=== PATIENT | male | born 1990 | race Two or more races ===

== ENCOUNTER 2017-02-07 08:38 | Inpatient (IN) | payer OTHER ==
[2017-02-07 09:40] VITALS: BMI 23.2
[2017-02-07] MEDS: chlordiazePOXIDE HCL 25 MG CAPSULE PO SCH ×3 (11:34→22:13)
--- NOTE | 2017-02-07 12:07 | HP ---
CIWA Score - CIWA Score Nausea/Vomitin-No Nausea/No Vomiting Muscle Tremors: 4-Moderate,w/Arms Extend Anxiety: 3 Agitation: 4-Moderately Restless Paroxysmal Sweats: 3 Orientation: 0-Oriented Tacttile Disturbances: 0-None Auditory Disturbances: 0-None Visual Disturbances: 0-None Headache: 0-None Present CIWA-Ar Total Score: 14 Admission ROS BHS - HPI Chief Complaint: I am here for detox and try to stay clean Allergies/Adverse Reactions: Allergies Allergy/AdvReac Type Severity Reaction Status Date / Time No Known Allergies Allergy Verified 02/07/17 09:59 History of Present Illness: Pt is 26yr old male with a history of alcohol dependence seeking detox for treatment. Exam Limitations: No Limitations - Ebola screening Have you traveled outside of the country in the last 21 days: No Have you had contact with anyone from an Ebola affected area: No Have you been sick,other than usual withdrawal symptoms: No Do you have a fever: No - Review of Systems Constitutional: Chills, Diaphoresis, Night Sweats, Changes in sleep EENT: reports: No Symptoms Reported Respiratory: reports: No Symptoms reported Cardiac: reports: Syncope GI: reports: Nausea, Poor Fluid Intake : reports: No Symptoms Reported, Other (genital warts) Musculoskeletal: reports: Muscle Pain Integumentary: reports: Flushing, Sweating Neuro: reports: Tingling, Tremors Endocrine: reports: Excessive Sweating, Flushing, Intolerance to Cold, Intolerance to Heat Hematology: reports: No Symptoms Reported Psychiatric: reports: Judgement Intact, Mood/Affect Appropiate, Orientated x3, Agitated, Anxious Other Systems: Reviewed and Negative Patient History - Patient Medical History Hx Anemia: No Hx Asthma: No Hx Chronic Obstructive Pulmonary Disease (COPD): No Hx Cancer: No Hx Cardiac Disorders: No Hx Congestive Heart Failure: No Hx Hypertension: No Hx Hypercholesterolemia: No Hx Pacemaker: No HX Cerebrovascular Accident: No Hx Seizures: No Hx Dementia: No Hx Diabetes: No Hx Gastrointestinal Disorders: No Hx Liver Disease: No Hx Genitourinary Disorders: No Hx Sexually Transmitted Disorders: No Hx Renal Disease (ESRD): No Hx Thyroid Disease: No Hx Human Immunodeficiency Virus (HIV): No Hx Hepatitis C: No Hx Depression: No Hx Suicide Attempt: No Hx Bipolar Disorder: No Hx Schizophrenia: No Other Medical History: insomnia - Patient Surgical History Past Surgical History: No Hx Neurologic Surgery: No Hx Cataract Extraction: No Hx Cardiac Surgery: No Hx Lung Surgery: No Hx Breast Surgery: No Hx Breast Biopsy: No Hx Abdominal Surgery: No Hx Appendectomy: Yes (at age 20) Hx Cholecystectomy: No Hx Genitourinary Surgery: No Hx Section: No Hx Orthopedic Surgery: No Anesthesia Reaction: No - PPD History Previous Implant?: Yes Documented Results: Negative w/o proof Implanted On Prior [facility] Admission?: No PPD to be Administered?: Yes - Reproductive History Patient is a Female of Child Bearing Age (11 -55 yrs old): Yes - Smoking Cessation Smoking history: Never smoked Have you smoked in the past 12 months: No Hx Chewing Tobacco Use: No Initiated information on smoking cessation: No - Substance & Tx. History Hx Alcohol Use: Yes Hx Substance Use: No Substance Use Type: Alcohol Hx Substance Use Treatment: No (this is his first detox faciltiy) - Substances Abused Alcohol-vodka/rum/beer Route: Oral Frequency: Daily Amount used: 3 pts./2 (40 oz.) Age of first use: 13 Date of Last Use: 02/06/17 Family Disease History - Family Disease History Family History: Denies Admission Physical Exam BHS - Vital Signs Vital Signs: Vital Signs - 24 hr 02/07/17 09:37 Temperature 96.5 F L Pulse Rate 70 Respiratory 20 Rate Blood Pressure 157/85 - Physical General Appearance: Yes: Appropriately Dressed, Moderate Distress, Irritable, Sweating, Anxious HEENTM: Yes: Hearing grossly Normal, Normal Voice Respiratory: Yes: Lungs Clear, Normal Breath Sounds, No Respiratory Distress Neck: Yes: No masses,lesions,Nodules Breast: Yes: Within Normal Limits Cardiology: Yes: Regular Rhythm, Regular Rate, S1, S2 Abdominal: Yes: Normal Bowel Sounds, Non Tender, Soft Genitourinary: Yes: Other (genital warts to penis shaft and right scrotum area) Back: Yes: Normal Inspection Musculoskeletal: Yes: Within Normal Limits, full range of Motion Extremities: Yes: Normal Capillary Refill, Normal Inspection, Tremors Neurological: Yes: Fully Oriented, Alert, Normal Response Integumentary: Yes: Normal Color Lymphatic: Yes: Within Normal Limits - Diagnostic (1) Alcohol dependence with uncomplicated withdrawal Current Visit: Yes Status: Chronic (2) Cannabis dependence Current Visit: Yes Status: Chronic (3) Genital warts Current Visit: Yes Status: Acute Cleared for Admission [facility] - Detox or Rehab [facility] Level of Care: Medically Managed Detox Regimen/Protocol: Librium [facility] Breath Alcohol Content Breath Alcohol Content: 0 Urine Drug Screen - Results Drug Screen Negative: No Urine Drug Screen Results: THC-Marijuana, BZO-Benzodiazepines, OXY-Oxycodone
[2017-02-07] MEDS ORDERED: MENTHOL/PHENOL 1 EACH UD MM PRN (12:20)
[2017-02-07] MEDS ORDERED: chlordiazePOXIDE HCL 25 MG CAPSULE PO PRN (12:20)
[2017-02-07] MEDS ORDERED: IBUPROFEN 400 MG TABLET (FP) PO PRN (12:20)
[2017-02-07] MEDS ORDERED: MAG HYDROX/AL HYDROX/SIMETH 30 ML UNIT-DOSE CUP PO PRN (12:20)
[2017-02-07] MEDS ORDERED: MAGNESIUM CITRATE 300 ML BOTTLE PO PRN (12:20)
[2017-02-07] MEDS ORDERED: ACETAMINOPHEN 325 MG TABLET (FP) PO PRN (12:20)
[2017-02-07] MEDS ORDERED: guaiFENesin/D-METHORPHAN HB 10 ML UNIT-DOSE CUPS PO PRN (12:20)
[2017-02-07] MEDS ORDERED: hydrOXYzine PAMOATE 50 MG CAPSULE (FP) PO PRN (12:20)
[2017-02-07] MEDS ORDERED: MAGNESIUM HYDROX 2400MG/30ML ORAL SUSPENSION 30 ML CUP PO PRN (12:20)
[2017-02-07] MEDS ORDERED: P-EPHED 60MG/TRIPROLIDI 2.5MG TABLET PO PRN (12:20)
[2017-02-07] MEDS ORDERED: LOPERAMIDE HCL 2 MG CAPSULE PO PRN (12:20)
[2017-02-07] MEDS ORDERED: SALICYLIC ACID 1 APPLIC BOTTLE TP ONE (12:23)
[2017-02-07] MEDS ORDERED: chlordiazePOXIDE HCL 25 MG CAPSULE PO ONE (12:42)
[2017-02-07 14:33] LABS: HIV 1 & 2 AB NEGATIVE; HIV 1 AGp24 NEGATIVE
[2017-02-07 17:22] LABS: MCH 31.3 pg (25.7-33.7); MCHC 33.2 g/dl (32.0-35.9); MEAN CELL VOLUME 94.1 fl (80-96); MEAN PLT VOLUME 9.9 fl (7.5-11.1); PLATELET COUNT 166 K/MM3 (134-434); RDW 14.3 % (11.9-15.9); WHITE BLOOD COUNT 4.6 K/mm3 (4.0-10.0)
[2017-02-07 17:39] LABS: ALBUMIN 3.8 g/dl (3.4-5.0); ALK PHOS 72 U/L (45-117); ANION GAP 8 (8-16); BILIRUBIN,TOTAL 0.7 mg/dL (0.2-1.0); CALCIUM 9.3 mg/dL (8.5-10.1); CO2 27 mmol/L (21-32); CREATININE 0.9 mg/dL (0.7-1.3); GLUCOSE,RANDOM 109 mg/dL (74-106); SGOT/AST 95 U/L (15-37); SGPT/ALT 49 U/L (12-78); TOT PROT 7.2 g/dl (6.4-8.2)
[2017-02-07 22:12] LABS: URINE APPEARANCE CLEAR; URINE BILIRUBIN NEGATIVE (NEGATIVE); URINE BLOOD 1+ (NEGATIVE); URINE COLOR YELLOW; URINE GLUCOSE (UA) NEGATIVE (NEGATIVE); URINE KETONE NEGATIVE (NEGATIVE); URINE LEUK ESTERASE NEGATIVE (NEGATIVE); URINE NITRITE NEGATIVE (NEGATIVE); URINE PROTEIN NEGATIVE (NEGATIVE); URINE UROBILINOGEN NEGATIVE mg/dL (0.2-1.0)
[2017-02-07] MEDS: THIAMINE HCL 100 MG TABLET (FP) PO SCH (22:13)
[2017-02-07] MEDS: diphenhydrAMINE HCL 50 MG CAPSULE PO PRN (22:14)
[2017-02-07 22:28] LABS: URINE MUCUS RARE; URINE RBC <1 /hpf (0-3); URINE WBC 3 /hpf (3-5)
[2017-02-08] MEDS: chlordiazePOXIDE HCL 25 MG CAPSULE PO SCH ×4 (05:36→22:38)
[2017-02-08] MEDS: PRENATAL VITAMINS W/ FOLIC ACID TABLET (FP) PO SCH (10:31)
--- NOTE | 2017-02-08 10:47 | EKG ---
Test Reason : Blood Pressure : / mmHG Vent. Rate : 071 BPM Atrial Rate : 071 BPM P-R Int : 152 ms QRS Dur : 092 ms QT Int : 376 ms P-R-T Axes : 063 042 024 degrees QTc Int : 408 ms NORMAL SINUS RHYTHM MINIMAL VOLTAGE CRITERIA FOR LVH, MAY BE NORMAL VARIANT BORDERLINE ECG NO PREVIOUS ECGS AVAILABLE Confirmed by YVONNE EISENBERG, KALI ([id number]) on 02/08/2017 10:46:27 AM Referred By: Artem Valencia Confirmed By:KALI RUSSELL MD
[2017-02-08] MEDS ORDERED: SALICYLIC ACID 1 APPLIC BOTTLE TP ONE (11:00)
[2017-02-08] MEDS ORDERED: FLU VACCINE QUAD 60 MCG/0.5 ML (MDV 17-18) IM ONE (12:00)
--- NOTE | 2017-02-08 12:15 | PN ---
[facility] CIWA - CIWA Score Nausea/Vomitin-No Nausea/No Vomiting Muscle Tremors: 4-Moderate,w/Arms Extend Anxiety: 4-Mod. Anxious/Guarded Agitation: 2 Paroxysmal Sweats: 1-Minimal Palms Moist Orientation: 0-Oriented Tacttile Disturbances: 1-Very Mild Itch/Numbness Auditory Disturbances: 2-Mild Harshness/Frighten Visual Disturbances: 3-Moderate Sensitivity Headache: 0-None Present CIWA-Ar Total Score: 17 S Progress Note (SOAP) Subjective: Anxious, Tremors, Sweating. Objective: PT. A & O X 3, OBSERVED AMBULATING ON UNIT. NO ACUTE DISTRESS. PT. DENEIS CHEST PAIN. 02/08/17 12:11 Vital Signs Temperature 98.1 F 02/08/17 09:31 Pulse Rate 99 H 02/08/17 09:31 Respiratory Rate 20 02/08/17 09:31 Blood Pressure 148/77 02/08/17 09:31 O2 Sat by Pulse Oximetry (%) Laboratory Tests 02/07/17 02/07/17 02/07/17 11:00 13:00 13:00 WBC 4.6 RBC 4.48 Hgb 14.0 Hct 42.2 MCV 94.1 MCH 31.3 MCHC 33.2 RDW 14.3 Plt Count 166 MPV 9.9 Sodium 137 Potassium 3.6 Chloride 102 Carbon Dioxide 27 Anion Gap 8 BUN 11 Creatinine 0.9 Creat Clearance w eGFR > 60 Random Glucose 109 H Calcium 9.3 Total Bilirubin 0.7 AST 95 H ALT 49 Alkaline Phosphatase 72 Total Protein 7.2 Albumin 3.8 Urine Color Urine Appearance Urine pH Ur Specific [place] Urine Protein Urine Glucose (UA) Urine Ketones Urine Blood Urine Nitrite Urine Bilirubin Urine Urobilinogen Urine RBC Urine WBC Urine Mucus HIV 1&2 Antibody Screen Negative HIV P24 Antigen Negative 02/07/17 21:46 WBC RBC Hgb Hct MCV MCH MCHC RDW Plt Count MPV Sodium Potassium Chloride Carbon Dioxide Anion Gap BUN Creatinine Creat Clearance w eGFR Random Glucose Calcium Total Bilirubin AST ALT Alkaline Phosphatase Total Protein Albumin Urine Color Yellow Urine Appearance Clear Urine pH 6.0 Ur Specific [place] 1.015 Urine Protein Negative Urine Glucose (UA) Negative Urine Ketones Negative Urine Blood 1+ H Urine Nitrite Negative Urine Bilirubin Negative Urine Urobilinogen Negative Urine RBC <1 Urine WBC 3 Urine Mucus Rare HIV 1&2 Antibody Screen HIV P24 Antigen LABS NOTED. RPR RESULT PENDING. 02/08/17 12:14 Assessment: 02/08/17 12:11 WITHDRAWAL SYMPTOMS. Plan: CONTINUE DETOX. REPEAT AST (02/09/2017) FOR ELEVATED ADMISSION VALUE. INCREASE DAILY PO FLUID INTAKE.
[2017-02-08] MEDS: diphenhydrAMINE HCL 50 MG CAPSULE PO PRN (22:38)
[2017-02-08] MEDS: THIAMINE HCL 100 MG TABLET (FP) PO SCH (22:38)
[2017-02-09] MEDS: chlordiazePOXIDE HCL 25 MG CAPSULE PO SCH (05:04)
[2017-02-09] MEDS ORDERED: SALICYLIC ACID 1 APPLIC BOTTLE TP SCH (10:15)
[2017-02-09] MEDS: PRENATAL VITAMINS W/ FOLIC ACID TABLET (FP) PO SCH (10:24)
[2017-02-09] MEDS: chlordiazePOXIDE 5 MG CAPSULE PO SCH ×3 (10:24→22:33)
--- NOTE | 2017-02-09 12:28 | PN ---
[facility] CIWA - CIWA Score Nausea/Vomitin-No Nausea/No Vomiting Muscle Tremors: 3 Anxiety: 5 Agitation: 4-Moderately Restless Paroxysmal Sweats: 1-Minimal Palms Moist Orientation: 0-Oriented Tacttile Disturbances: 3-Moderate Itch/Numb/Burn Auditory Disturbances: 0-None Visual Disturbances: 0-None Headache: 0-None Present CIWA-Ar Total Score: 16 BHS Progress Note (SOAP) Subjective: ANXIETY,SWEATS,SLIGHT TREMORS. PT ON TREATMENT FOR GENITAL/ANAL WARTS. Objective: 02/09/17 12:24 Vital Signs Temperature 99.6 F 02/09/17 09:53 Pulse Rate 100 H 02/09/17 09:53 Respiratory Rate 18 02/09/17 09:53 Blood Pressure 144/80 02/09/17 09:53 O2 Sat by Pulse Oximetry (%) Laboratory Last Values WBC 4.6 K/mm3 (4.0-10.0) 02/07/17 13:00 RBC 4.48 M/mm3 (4.00-5.60) 02/07/17 13:00 Hgb 14.0 GM/dL (11.7-16.9) 02/07/17 13:00 Hct 42.2 % (35.4-49) 02/07/17 13:00 MCV 94.1 fl (80-96) 02/07/17 13:00 MCH 31.3 pg (25.7-33.7) 02/07/17 13:00 MCHC 33.2 g/dl (32.0-35.9) 02/07/17 13:00 RDW 14.3 % (11.9-15.9) 02/07/17 13:00 Plt Count 166 K/MM3 (134-434) 02/07/17 13:00 MPV 9.9 fl (7.5-11.1) 02/07/17 13:00 Sodium 137 mmol/L (136-145) 02/07/17 13:00 Potassium 3.6 mmol/L (3.5-5.1) 02/07/17 13:00 Chloride 102 mmol/L (98-107) 02/07/17 13:00 Carbon Dioxide 27 mmol/L (21-32) 02/07/17 13:00 Anion Gap 8 (8-16) 02/07/17 13:00 BUN 11 mg/dL (7-18) 02/07/17 13:00 Creatinine 0.9 mg/dL (0.7-1.3) 02/07/17 13:00 Creat Clearance w eGFR > 60 (>60) 02/07/17 13:00 Random Glucose 109 mg/dL (74-106) H 02/07/17 13:00 Calcium 9.3 mg/dL (8.5-10.1) 02/07/17 13:00 Total Bilirubin 0.7 mg/dL (0.2-1.0) 02/07/17 13:00 AST 78 U/L (15-37) H 02/09/17 07:00 ALT 49 U/L (12-78) 02/07/17 13:00 Alkaline Phosphatase 72 U/L (45-117) 02/07/17 13:00 Total Protein 7.2 g/dl (6.4-8.2) 02/07/17 13:00 Albumin 3.8 g/dl (3.4-5.0) 02/07/17 13:00 Urine Color Yellow 02/07/17 21:46 Urine Appearance Clear 02/07/17 21:46 Urine pH 6.0 (5.0-8.0) 02/07/17 21:46 Ur Specific [employer] 1.015 (1.005-1.025) 02/07/17 21:46 Urine Protein Negative (NEGATIVE) 02/07/17 21:46 Urine Glucose (UA) Negative (NEGATIVE) 02/07/17 21:46 Urine Ketones Negative (NEGATIVE) 02/07/17 21:46 Urine Blood 1+ (NEGATIVE) H 02/07/17 21:46 Urine Nitrite Negative (NEGATIVE) 02/07/17 21:46 Urine Bilirubin Negative (NEGATIVE) 02/07/17 21:46 Urine Urobilinogen Negative mg/dL (0.2-1.0) 02/07/17 21:46 Urine RBC <1 /hpf (0-3) 02/07/17 21:46 Urine WBC 3 /hpf (3-5) 02/07/17 21:46 Urine Mucus Rare 02/07/17 21:46 RPR Titer Nonreactive (NONREACTIVE) 02/07/17 13:00 HIV 1&2 Antibody Screen Negative 02/07/17 11:00 HIV P24 Antigen Negative 02/07/17 11:00 ANAL/GENITAL GROWTH NOTED. Assessment: 02/09/17 12:25 WITHDRAWAL SX Plan: CONTINUE DETOX PT WAS INSTRUCTED TO FOLLOW UP WITH PMD/I.D SPECIALIST AT [facility] FOR FURTHER MANAGEMENT OF CONDITION AFTER DETOX.
[2017-02-09] MEDS: SALICYLIC ACID 1 APPLIC BOTTLE TP SCH (13:45)
--- NOTE | 2017-02-09 17:49 | PN ---
BHS Progress Note Note: Clonidine, 0.1 mg PO X 1 ordered for multiple elevated BP's. Patient denies any history of Hypertension. 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
[2017-02-09] MEDS ORDERED: cloNIDine HCL 0.1 MG TABLET PO ONE (18:00)
[2017-02-09] MEDS: THIAMINE HCL 100 MG TABLET (FP) PO SCH (22:33)
[2017-02-09] MEDS: diphenhydrAMINE HCL 50 MG CAPSULE PO PRN (22:33)
[2017-02-10] MEDS: chlordiazePOXIDE 5 MG CAPSULE PO SCH (05:18)
[2017-02-10] MEDS: PRENATAL VITAMINS W/ FOLIC ACID TABLET (FP) PO SCH (10:45)
[2017-02-10] MEDS: SALICYLIC ACID 1 APPLIC BOTTLE TP SCH (10:46)
[2017-02-10] MEDS: chlordiazePOXIDE HCL 10 MG CAPSULE PO SCH ×3 (10:46→22:48)
--- NOTE | 2017-02-10 16:41 | PN ---
BHS Progress Note (SOAP) Subjective: Sweating, Body Aches. Objective: PT. A & O X 2 (DISORIENTED ABOUT DAY/ DATE). PT. OBSERVED AMBULATING ON UNIT. NO ACUTE DISTRESS. 02/10/17 16:39 Vital Signs Temperature 97.0 F L 02/10/17 15:22 Pulse Rate 92 H 02/10/17 15:22 Respiratory Rate 20 02/10/17 15:22 Blood Pressure 147/84 02/10/17 15:22 O2 Sat by Pulse Oximetry (%) Laboratory Tests 02/07/17 02/07/17 02/07/17 11:00 13:00 13:00 WBC 4.6 RBC 4.48 Hgb 14.0 Hct 42.2 MCV 94.1 MCH 31.3 MCHC 33.2 RDW 14.3 Plt Count 166 MPV 9.9 Sodium 137 Potassium 3.6 Chloride 102 Carbon Dioxide 27 Anion Gap 8 BUN 11 Creatinine 0.9 Creat Clearance w eGFR > 60 Random Glucose 109 H Calcium 9.3 Total Bilirubin 0.7 AST 95 H ALT 49 Alkaline Phosphatase 72 Total Protein 7.2 Albumin 3.8 Urine Color Urine Appearance Urine pH Ur Specific [place] Urine Protein Urine Glucose (UA) Urine Ketones Urine Blood Urine Nitrite Urine Bilirubin Urine Urobilinogen Urine RBC Urine WBC Urine Mucus RPR Titer HIV 1&2 Antibody Screen Negative HIV P24 Antigen Negative 02/07/17 02/07/17 02/09/17 13:00 21:46 07:00 WBC RBC Hgb Hct MCV MCH MCHC RDW Plt Count MPV Sodium Potassium Chloride Carbon Dioxide Anion Gap BUN Creatinine Creat Clearance w eGFR Random Glucose Calcium Total Bilirubin AST 78 H ALT Alkaline Phosphatase Total Protein Albumin Urine Color Yellow Urine Appearance Clear Urine pH 6.0 Ur Specific [place] 1.015 Urine Protein Negative Urine Glucose (UA) Negative Urine Ketones Negative Urine Blood 1+ H Urine Nitrite Negative Urine Bilirubin Negative Urine Urobilinogen Negative Urine RBC <1 Urine WBC 3 Urine Mucus Rare RPR Titer Nonreactive HIV 1&2 Antibody Screen HIV P24 Antigen LABS NOTED. 02/10/17 16:40 Assessment: 02/10/17 16:40 WITHDRAWAL SYMPTOMS. Plan: CONTINUE DETOX.
[2017-02-10] MEDS: diphenhydrAMINE HCL 50 MG CAPSULE PO PRN (22:48)
[2017-02-10] MEDS: THIAMINE HCL 100 MG TABLET (FP) PO SCH (22:48)
[2017-02-11] MEDS: chlordiazePOXIDE HCL 10 MG CAPSULE PO SCH (05:47)
[2017-02-11 07:03] VITALS: BP 124/80; PULSE 81; TEMP 96.8
--- NOTE | 2017-02-11 12:38 | DS ---
[facility] Detox Discharge Summary Admission Date: 02/07/17 Discharge Date: 02/11/17 - History Present History: Alcohol Dependence, Cannabis Dependence Pertinent Past History: Denies - Physical Exam Results Vital Signs: Vital Signs Temperature 96.8 F L 02/11/17 07:03 Pulse Rate 81 02/11/17 07:03 Respiratory Rate 18 02/11/17 07:03 Blood Pressure 124/80 02/11/17 07:03 O2 Sat by Pulse Oximetry (%) Pertinent Admission Physical Exam Findings: Withdrawal symptoms Laboratory Tests 02/07/17 02/07/17 02/07/17 11:00 13:00 13:00 WBC 4.6 RBC 4.48 Hgb 14.0 Hct 42.2 MCV 94.1 MCH 31.3 MCHC 33.2 RDW 14.3 Plt Count 166 MPV 9.9 Sodium 137 Potassium 3.6 Chloride 102 Carbon Dioxide 27 Anion Gap 8 BUN 11 Creatinine 0.9 Creat Clearance w eGFR > 60 Random Glucose 109 H Calcium 9.3 Total Bilirubin 0.7 AST 95 H ALT 49 Alkaline Phosphatase 72 Total Protein 7.2 Albumin 3.8 Urine Color Urine Appearance Urine pH Ur Specific [place] Urine Protein Urine Glucose (UA) Urine Ketones Urine Blood Urine Nitrite Urine Bilirubin Urine Urobilinogen Urine RBC Urine WBC Urine Mucus RPR Titer HIV 1&2 Antibody Screen Negative HIV P24 Antigen Negative 02/07/17 02/07/17 02/09/17 13:00 21:46 07:00 WBC RBC Hgb Hct MCV MCH MCHC RDW Plt Count MPV Sodium Potassium Chloride Carbon Dioxide Anion Gap BUN Creatinine Creat Clearance w eGFR Random Glucose Calcium Total Bilirubin AST 78 H ALT Alkaline Phosphatase Total Protein Albumin Urine Color Yellow Urine Appearance Clear Urine pH 6.0 Ur Specific [place] 1.015 Urine Protein Negative Urine Glucose (UA) Negative Urine Ketones Negative Urine Blood 1+ H Urine Nitrite Negative Urine Bilirubin Negative Urine Urobilinogen Negative Urine RBC <1 Urine WBC 3 Urine Mucus Rare RPR Titer Nonreactive HIV 1&2 Antibody Screen HIV P24 Antigen Labs noted: microscopic hematuria; encouraged to drink lots of water, f/u with PCP in 1-2 weeks - Treatment Hospital Course: Detox Protocol Followed, Detoxed Safely, Responded well, Discharged Condition Good - Medication Discharge Medications: Ambulatory Orders NK [No Known Home Medication] 02/07/17 - Diagnosis (1) Alcohol dependence with uncomplicated withdrawal Status: Acute (2) Cannabis dependence Status: Acute (3) Microscopic hematuria Status: Acute - AMA Did Patient Leave Against Medical Advice: No
== END 2017-02-11 09:36 | disposition home or self-care (01) | DRG 775 ==
LOC: YASAS 08:38 → Y3N 12:02
PROVIDERS: ADMIT Internal Medicine; ATTEND Internal Medicine
PROC: HZ2ZZZZ Detoxification Services for Substance Abuse Treatment (ICD-10-PCS; principal; 2017-02-07)
DX: F10.230 Alcohol dependence with withdrawal, uncomplicated (principal); F12.20 Cannabis dependence, uncomplicated; R31.29 Other microscopic hematuria; A63.0 Anogenital (venereal) warts
CPT/HCPCS: 36415; 80053; 81003; 81015; 84450; 85027; 86593; 87389; 90688; 93005; 93010; G0008

== ENCOUNTER 2017-10-13 08:54 | Inpatient (IN) | payer OTHER ==
[2017-10-13 10:03] VITALS: BMI 21.9
--- NOTE | 2017-10-13 11:53 | HP ---
CIWA Score - CIWA Score Nausea/Vomitin-Mild Nausea/No Vomiting Muscle Tremors: 4-Moderate,w/Arms Extend Anxiety: 4-Mod. Anxious/Guarded Agitation: 4-Moderately Restless Paroxysmal Sweats: 1-Minimal Palms Moist Orientation: 0-Oriented Tacttile Disturbances: 1-Very Mild Itch/Numbness Auditory Disturbances: 1-Very Mild Visual Disturbances: 1-Very Mild Sensitivity Headache: 1-Very Mild CIWA-Ar Total Score: 18 Admission ROS S - HPI Chief Complaint: I get seizures - they said if I stop drinking the seizures will stop, I don't like the medication Allergies/Adverse Reactions: Allergies Allergy/AdvReac Type Severity Reaction Status Date / Time No Known Allergies Allergy Verified 10/13/17 11:13 History of Present Illness: 26 yo gentleman here for detox from alcohol. Patient reports a seizure history as recently as last week but does not like side effects from anti-seizure meds so goes on and off them. Also has black outs. Noted benzo in urine tox - states he was in [facility] ED last night for tremors and they gave him medication. Exam Limitations: Clinical Condition - Ebola screening Have you traveled outside of the country in the last 21 days: No (N) Have you had contact with anyone from an Ebola affected area: No Have you been sick,other than usual withdrawal symptoms: No Do you have a fever: No - Review of Systems Constitutional: Loss of Appetite, Malaise, Changes in sleep EENT: reports: No Symptoms Reported Respiratory: reports: No Symptoms reported Cardiac: reports: No Symptoms Reported GI: reports: Poor Appetite, Poor Fluid Intake, Indigestion, Abdominal cramping : reports: Frequency, Other (penile wart) Musculoskeletal: reports: No Symptoms Reported Integumentary: reports: Dryness Neuro: reports: Seizure, Tremors Endocrine: reports: No Symptoms Reported Hematology: reports: No Symptoms Reported Psychiatric: reports: Judgement Intact, Mood/Affect Appropiate, Orientated x3, Anxious Other Systems: Reviewed and Negative Patient History - Patient Medical History Hx Anemia: No Hx Asthma: No Hx Chronic Obstructive Pulmonary Disease (COPD): No Hx Cancer: No Hx Cardiac Disorders: No Hx Congestive Heart Failure: No Hx Hypertension: No Hx Hypercholesterolemia: No Hx Pacemaker: No HX Cerebrovascular Accident: No Hx Seizures: Yes (one week ago, on meds) Hx Dementia: No Hx Diabetes: No Hx Gastrointestinal Disorders: No Hx Liver Disease: No Hx Genitourinary Disorders: Yes (penile wart) Hx Sexually Transmitted Disorders: No Hx Renal Disease (ESRD): No Hx Thyroid Disease: No Hx Human Immunodeficiency Virus (HIV): No Hx Hepatitis C: No Hx Depression: No Hx Suicide Attempt: No Hx Bipolar Disorder: No Hx Schizophrenia: No - Patient Surgical History Past Surgical History: Yes Hx Neurologic Surgery: No Hx Cataract Extraction: No Hx Cardiac Surgery: No Hx Lung Surgery: No Hx Breast Surgery: No Hx Breast Biopsy: No Hx Abdominal Surgery: No Hx Appendectomy: Yes (at age 20) Hx Cholecystectomy: No Hx Genitourinary Surgery: No Hx Section: No Hx Orthopedic Surgery: No Anesthesia Reaction: No - PPD History Previous Implant?: Yes Documented Results: Negative w/proof Date: 02/09/17 PPD to be Administered?: No - Reproductive History Patient is a Female of Child Bearing Age (11 -55 yrs old): No (male) - Smoking Cessation Smoking history: Never smoked Have you smoked in the past 12 months: No Hx Chewing Tobacco Use: No Initiated information on smoking cessation: No - Substance & Tx. History Hx Alcohol Use: Yes Hx Substance Use: Yes Substance Use Type: Alcohol Hx Substance Use Treatment: Yes (detox) - Substances Abused Alcohol Route: Oral Frequency: Daily Amount used: LIQUOR- 3 PINTS, 40 oz BEER- two Age of first use: 13 Date of Last Use: 10/12/17 cannabis Route: Smoking Frequency: 3-6 times per week Amount used: 2 blunts Age of first use: 15 Date of Last Use: 10/12/17 Family Disease History - Family Disease History Family Disease History: Other: Father (living, etoh), Mother (living, ), Brother (two - living - healthy), Sister (four - living - healthy), Son (two - healthy, ages 4 and 10), Daughter (one - healthy, age 6) Admission Physical Exam BHS - Vital Signs Vital Signs: Vital Signs - 24 hr 10/13/17 09:36 Temperature 98.9 F Pulse Rate 86 Respiratory 20 Rate Blood Pressure 133/80 - Physical General Appearance: Yes: Nourished, Appropriately Dressed, Moderate Distress, Tremorous, Anxious HEENTM: Yes: Hearing grossly Normal, Normal ENT Inspection, Normocephalic, Normal Voice, Pharynx Normal Respiratory: Yes: Normal Breath Sounds, No Respiratory Distress Neck: Yes: No masses,lesions,Nodules Breast: Yes: Breast Exam Deferred Cardiology: Yes: Regular Rhythm, Regular Rate Abdominal: Yes: Flat, Soft Genitourinary: Yes: Frequency, Pain (small genital wart) Back: Yes: Normal Inspection Musculoskeletal: Yes: full range of Motion, Gait Steady Extremities: Yes: Normal Capillary Refill, Normal Inspection, Normal Range of Motion, Non-Tender Neurological: Yes: Fully Oriented, Alert, Normal Mood/Affect, Normal Response Integumentary: Yes: Normal Color, Dry, Warm Lymphatic: Yes: Within Normal Limits - Diagnostic (1) Alcohol dependence with uncomplicated withdrawal Current Visit: Yes Status: Chronic (2) History of seizure Current Visit: Yes Status: Chronic (3) Cannabis dependence Current Visit: Yes Status: Chronic (4) Genital warts Current Visit: Yes Status: Chronic Cleared for Admission [facility] - Detox or Rehab [facility] Level of Care: Medically Managed Detox Regimen/Protocol: Librium [facility] Breath Alcohol Content Breath Alcohol Content: 0.008 Urine Drug Screen - Results Drug Screen Negative: No Urine Drug Screen Results: THC-Marijuana, BZO-Benzodiazepines
[2017-10-13] MEDS ORDERED: MAG HYDROX/AL HYDROX/SIMETH 30 ML UNIT-DOSE CUP PO PRN (12:21)
[2017-10-13] MEDS ORDERED: MAGNESIUM HYDROX 2400MG/30ML ORAL SUSPENSION 30 ML CUP PO PRN (12:21)
[2017-10-13] MEDS ORDERED: MAGNESIUM CITRATE 300 ML BOTTLE PO PRN (12:21)
[2017-10-13] MEDS ORDERED: LOPERAMIDE HCL 2 MG CAPSULE PO PRN (12:21)
[2017-10-13] MEDS ORDERED: ACETAMINOPHEN 325 MG TABLET (FP) PO PRN (12:21)
[2017-10-13] MEDS ORDERED: MENTHOL/PHENOL 1 EACH UD MM PRN (12:21)
[2017-10-13] MEDS ORDERED: IBUPROFEN 400 MG TABLET (FP) PO PRN (12:21)
[2017-10-13] MEDS ORDERED: chlordiazePOXIDE HCL 25 MG CAPSULE PO ONE (12:21)
[2017-10-13] MEDS ORDERED: chlordiazePOXIDE HCL 25 MG CAPSULE PO PRN (12:21)
[2017-10-13] MEDS ORDERED: hydrOXYzine PAMOATE 25 MG CAPSULE (FP) PO PRN (12:21)
[2017-10-13] MEDS ORDERED: P-EPHED 60MG/TRIPROLIDI 2.5MG TABLET PO PRN (12:21)
[2017-10-13] MEDS ORDERED: guaiFENesin/D-METHORPHAN HB 10 ML UNIT-DOSE CUPS PO PRN (12:21)
[2017-10-13] MEDS: chlordiazePOXIDE HCL 25 MG CAPSULE PO SCH ×2 (17:12→22:15)
[2017-10-13] MEDS: THIAMINE HCL 100 MG TABLET (FP) PO SCH (22:15)
[2017-10-13] MEDS: LACOSAMIDE 50 MG TABLET PO SCH (22:15)
[2017-10-14] MEDS: chlordiazePOXIDE HCL 25 MG CAPSULE PO SCH ×4 (05:15→22:14)
[2017-10-14] MEDS: LACOSAMIDE 50 MG TABLET PO SCH ×2 (10:07→22:15)
[2017-10-14] MEDS: PRENATAL VITAMINS W/ FOLIC ACID TABLET (FP) PO SCH (10:07)
[2017-10-14 11:01] LABS: URINE APPEARANCE CLEAR; URINE BILIRUBIN NEGATIVE (<2.0 mg/dL); URINE BLOOD NEGATIVE (NEGATIVE); URINE COLOR LTYELLOW; URINE GLUCOSE (UA) NEGATIVE (NEGATIVE); URINE KETONE NEGATIVE (NEGATIVE); URINE LEUK ESTERASE NEGATIVE (NEGATIVE); URINE NITRITE NEGATIVE (NEGATIVE); URINE PROTEIN NEGATIVE (NEGATIVE); URINE UROBILINOGEN NEGATIVE mg/dL (0.2-1.0)
[2017-10-14 11:03] LABS: HEMOGLOBIN 14.6 GM/dL (11.7-16.9); MCH 32.9 pg (25.7-33.7); MCHC 33.9 g/dl (32.0-35.9); MEAN PLT VOLUME 9.1 fl (7.5-11.1); PLATELET COUNT 180 K/MM3 (134-434); RBC 4.43 M/mm3 (4.00-5.60); RDW 14.7 % (11.9-15.9); WHITE BLOOD COUNT 4.5 K/mm3 (4.0-10.0)
[2017-10-14 11:08] LABS: CHLORIDE 103 mmol/L (98-107); POTASSIUM 4.2 mmol/L (3.5-5.1); SODIUM 140 mmol/L (136-145)
[2017-10-14 11:28] LABS: ALBUMIN 3.8 g/dl (3.4-5.0); ALK PHOS 57 U/L (45-117); ANION GAP 8 (8-16); BILIRUBIN,TOTAL 0.3 mg/dL (0.2-1.0); BLOOD UREA NITROGEN 9 mg/dL (7-18); CALCIUM 9.2 mg/dL (8.5-10.1); CO2 29 mmol/L (21-32); CREATININE 0.9 mg/dL (0.7-1.3); GLUCOSE,RANDOM 90 mg/dL (74-106); SGOT/AST 35 U/L (15-37); SGPT/ALT 35 U/L (12-78); TOT PROT 7.2 g/dl (6.4-8.2)
--- NOTE | 2017-10-14 13:34 | PN ---
[facility] CIWA - CIWA Score Nausea/Vomitin-Mild Nausea/No Vomiting Muscle Tremors: 4-Moderate,w/Arms Extend Anxiety: 3 Agitation: 3 Paroxysmal Sweats: 1-Minimal Palms Moist Orientation: 0-Oriented Tacttile Disturbances: 1-Very Mild Itch/Numbness Auditory Disturbances: 0-None Visual Disturbances: 0-None Headache: 1-Very Mild CIWA-Ar Total Score: 14 BHS Progress Note (SOAP) Subjective: sweat tremor restlessness hot chill cold trouble sleep at night Objective: 10/14/17 13:34 Vital Signs Temperature 97.7 F 10/14/17 09:18 Pulse Rate 67 10/14/17 09:18 Respiratory Rate 18 10/14/17 09:18 Blood Pressure 120/76 10/14/17 09:18 O2 Sat by Pulse Oximetry (%) Laboratory Last Values WBC 4.5 K/mm3 (4.0-10.0) 10/14/17 07:40 RBC 4.43 M/mm3 (4.00-5.60) 10/14/17 07:40 Hgb 14.6 GM/dL (11.7-16.9) 10/14/17 07:40 Hct 43.0 % (35.4-49) 10/14/17 07:40 MCV 97.0 fl (80-96) H 10/14/17 07:40 MCH 32.9 pg (25.7-33.7) 10/14/17 07:40 MCHC 33.9 g/dl (32.0-35.9) 10/14/17 07:40 RDW 14.7 % (11.9-15.9) 10/14/17 07:40 Plt Count 180 K/MM3 (134-434) 10/14/17 07:40 MPV 9.1 fl (7.5-11.1) 10/14/17 07:40 Sodium 140 mmol/L (136-145) 10/14/17 07:40 Potassium 4.2 mmol/L (3.5-5.1) 10/14/17 07:40 Chloride 103 mmol/L (98-107) 10/14/17 07:40 Carbon Dioxide 29 mmol/L (21-32) 10/14/17 07:40 Anion Gap 8 (8-16) 10/14/17 07:40 BUN 9 mg/dL (7-18) 10/14/17 07:40 Creatinine 0.9 mg/dL (0.7-1.3) 10/14/17 07:40 Creat Clearance w eGFR > 60 (>60) 10/14/17 07:40 Random Glucose 90 mg/dL (74-106) 10/14/17 07:40 Calcium 9.2 mg/dL (8.5-10.1) 10/14/17 07:40 Total Bilirubin 0.3 mg/dL (0.2-1.0) D 10/14/17 07:40 AST 35 U/L (15-37) D 10/14/17 07:40 ALT 35 U/L (12-78) D 10/14/17 07:40 Alkaline Phosphatase 57 U/L (45-117) D 10/14/17 07:40 Total Protein 7.2 g/dl (6.4-8.2) 10/14/17 07:40 Albumin 3.8 g/dl (3.4-5.0) 10/14/17 07:40 Urine Color [place] 10/14/17 08:15 Urine Appearance Clear 10/14/17 08:15 Urine pH 6.0 (5.0-8.0) 10/14/17 08:15 Ur Specific [place] 1.011 (1.001-1.035) 10/14/17 08:15 Urine Protein Negative (NEGATIVE) 10/14/17 08:15 Urine Glucose (UA) Negative (NEGATIVE) 10/14/17 08:15 Urine Ketones Negative (NEGATIVE) 10/14/17 08:15 Urine Blood Negative (NEGATIVE) 10/14/17 08:15 Urine Nitrite Negative (NEGATIVE) 10/14/17 08:15 Urine Bilirubin Negative (<2.0 mg/dL) 10/14/17 08:15 Urine Urobilinogen Negative mg/dL (0.2-1.0) 10/14/17 08:15 Ur Leukocyte Esterase Negative (NEGATIVE) 10/14/17 08:15 RPR Titer Nonreactive (NONREACTIVE) 10/14/17 07:40 lab noted Assessment: 10/14/17 13:34 withdrawal sx Plan: continue detox
[2017-10-14] MEDS: THIAMINE HCL 100 MG TABLET (FP) PO SCH (22:14)
--- NOTE | 2017-10-14 22:43 | EKG ---
Test Reason : Blood Pressure : / mmHG Vent. Rate : 074 BPM Atrial Rate : 074 BPM P-R Int : 144 ms QRS Dur : 090 ms QT Int : 374 ms P-R-T Axes : 065 043 015 degrees QTc Int : 415 ms NORMAL SINUS RHYTHM POSSIBLE LEFT ATRIAL ENLARGEMENT NONSPECIFIC T WAVE ABNORMALITY ABNORMAL ECG WHEN COMPARED WITH ECG OF 07-FEB-2017 13:32, NO SIGNIFICANT CHANGE WAS FOUND Confirmed by FLORI SANCHES MD ([id number]) on 10/14/2017 10:42:46 PM Referred By: Confirmed By:FLORI SANCHES MD
[2017-10-15] MEDS: chlordiazePOXIDE HCL 25 MG CAPSULE PO SCH ×2 (04:59→10:37)
[2017-10-15] MEDS: PRENATAL VITAMINS W/ FOLIC ACID TABLET (FP) PO SCH (09:15)
[2017-10-15] MEDS: LACOSAMIDE 50 MG TABLET PO SCH ×2 (09:15→22:38)
--- NOTE | 2017-10-15 10:59 | PN ---
S CIWA - CIWA Score Nausea/Vomitin-Mild Nausea/No Vomiting Muscle Tremors: 4-Moderate,w/Arms Extend Anxiety: 3 Agitation: 3 Paroxysmal Sweats: 1-Minimal Palms Moist Orientation: 0-Oriented Tacttile Disturbances: 0-None Auditory Disturbances: 0-None Visual Disturbances: 0-None Headache: 0-None Present CIWA-Ar Total Score: 12 [facility] Progress Note (SOAP) Subjective: sweat tremor trouble sleep at night anxiety restlessness Objective: 10/15/17 10:58 Vital Signs Temperature 97.9 F 10/15/17 10:00 Pulse Rate 82 10/15/17 10:00 Respiratory Rate 16 10/15/17 10:00 Blood Pressure 123/74 10/15/17 10:00 O2 Sat by Pulse Oximetry (%) Laboratory Last Values WBC 4.5 K/mm3 (4.0-10.0) 10/14/17 07:40 RBC 4.43 M/mm3 (4.00-5.60) 10/14/17 07:40 Hgb 14.6 GM/dL (11.7-16.9) 10/14/17 07:40 Hct 43.0 % (35.4-49) 10/14/17 07:40 MCV 97.0 fl (80-96) H 10/14/17 07:40 MCH 32.9 pg (25.7-33.7) 10/14/17 07:40 MCHC 33.9 g/dl (32.0-35.9) 10/14/17 07:40 RDW 14.7 % (11.9-15.9) 10/14/17 07:40 Plt Count 180 K/MM3 (134-434) 10/14/17 07:40 MPV 9.1 fl (7.5-11.1) 10/14/17 07:40 Sodium 140 mmol/L (136-145) 10/14/17 07:40 Potassium 4.2 mmol/L (3.5-5.1) 10/14/17 07:40 Chloride 103 mmol/L (98-107) 10/14/17 07:40 Carbon Dioxide 29 mmol/L (21-32) 10/14/17 07:40 Anion Gap 8 (8-16) 10/14/17 07:40 BUN 9 mg/dL (7-18) 10/14/17 07:40 Creatinine 0.9 mg/dL (0.7-1.3) 10/14/17 07:40 Creat Clearance w eGFR > 60 (>60) 10/14/17 07:40 Random Glucose 90 mg/dL (74-106) 10/14/17 07:40 Calcium 9.2 mg/dL (8.5-10.1) 10/14/17 07:40 Total Bilirubin 0.3 mg/dL (0.2-1.0) D 10/14/17 07:40 AST 35 U/L (15-37) D 10/14/17 07:40 ALT 35 U/L (12-78) D 10/14/17 07:40 Alkaline Phosphatase 57 U/L (45-117) D 10/14/17 07:40 Total Protein 7.2 g/dl (6.4-8.2) 10/14/17 07:40 Albumin 3.8 g/dl (3.4-5.0) 10/14/17 07:40 Urine Color Ltyellow 10/14/17 08:15 Urine Appearance Clear 10/14/17 08:15 Urine pH 6.0 (5.0-8.0) 10/14/17 08:15 Ur Specific [place] 1.011 (1.001-1.035) 10/14/17 08:15 Urine Protein Negative (NEGATIVE) 10/14/17 08:15 Urine Glucose (UA) Negative (NEGATIVE) 10/14/17 08:15 Urine Ketones Negative (NEGATIVE) 10/14/17 08:15 Urine Blood Negative (NEGATIVE) 10/14/17 08:15 Urine Nitrite Negative (NEGATIVE) 10/14/17 08:15 Urine Bilirubin Negative (<2.0 mg/dL) 10/14/17 08:15 Urine Urobilinogen Negative mg/dL (0.2-1.0) 10/14/17 08:15 Ur Leukocyte Esterase Negative (NEGATIVE) 10/14/17 08:15 RPR Titer Nonreactive (NONREACTIVE) 10/14/17 07:40 Laboratory Last Values WBC 4.5 K/mm3 (4.0-10.0) 10/14/17 07:40 RBC 4.43 M/mm3 (4.00-5.60) 10/14/17 07:40 Hgb 14.6 GM/dL (11.7-16.9) 10/14/17 07:40 Hct 43.0 % (35.4-49) 10/14/17 07:40 MCV 97.0 fl (80-96) H 10/14/17 07:40 MCH 32.9 pg (25.7-33.7) 10/14/17 07:40 MCHC 33.9 g/dl (32.0-35.9) 10/14/17 07:40 RDW 14.7 % (11.9-15.9) 10/14/17 07:40 Plt Count 180 K/MM3 (134-434) 10/14/17 07:40 MPV 9.1 fl (7.5-11.1) 10/14/17 07:40 Sodium 140 mmol/L (136-145) 10/14/17 07:40 Potassium 4.2 mmol/L (3.5-5.1) 10/14/17 07:40 Chloride 103 mmol/L (98-107) 10/14/17 07:40 Carbon Dioxide 29 mmol/L (21-32) 10/14/17 07:40 Anion Gap 8 (8-16) 10/14/17 07:40 BUN 9 mg/dL (7-18) 10/14/17 07:40 Creatinine 0.9 mg/dL (0.7-1.3) 10/14/17 07:40 Creat Clearance w eGFR > 60 (>60) 10/14/17 07:40 Random Glucose 90 mg/dL (74-106) 10/14/17 07:40 Calcium 9.2 mg/dL (8.5-10.1) 10/14/17 07:40 Total Bilirubin 0.3 mg/dL (0.2-1.0) D 10/14/17 07:40 AST 35 U/L (15-37) D 10/14/17 07:40 ALT 35 U/L (12-78) D 10/14/17 07:40 Alkaline Phosphatase 57 U/L (45-117) D 10/14/17 07:40 Total Protein 7.2 g/dl (6.4-8.2) 10/14/17 07:40 Albumin 3.8 g/dl (3.4-5.0) 10/14/17 07:40 Urine Color Ltyellow 10/14/17 08:15 Urine Appearance Clear 10/14/17 08:15 Urine pH 6.0 (5.0-8.0) 10/14/17 08:15 Ur Specific [place] 1.011 (1.001-1.035) 10/14/17 08:15 Urine Protein Negative (NEGATIVE) 10/14/17 08:15 Urine Glucose (UA) Negative (NEGATIVE) 10/14/17 08:15 Urine Ketones Negative (NEGATIVE) 10/14/17 08:15 Urine Blood Negative (NEGATIVE) 10/14/17 08:15 Urine Nitrite Negative (NEGATIVE) 10/14/17 08:15 Urine Bilirubin Negative (<2.0 mg/dL) 10/14/17 08:15 Urine Urobilinogen Negative mg/dL (0.2-1.0) 10/14/17 08:15 Ur Leukocyte Esterase Negative (NEGATIVE) 10/14/17 08:15 RPR Titer Nonreactive (NONREACTIVE) 10/14/17 07:40 lab noted Assessment: 10/15/17 11:21 withdrawal sx Plan: continue detox
[2017-10-15] MEDS: chlordiazePOXIDE 5 MG CAPSULE PO SCH ×2 (17:37→22:38)
[2017-10-15] MEDS: MELATONIN 5 MG TABLETS PO PRN (22:38)
[2017-10-15] MEDS: THIAMINE HCL 100 MG TABLET (FP) PO SCH (22:38)
[2017-10-16] MEDS: chlordiazePOXIDE 5 MG CAPSULE PO SCH ×2 (04:52→10:19)
[2017-10-16] MEDS: PRENATAL VITAMINS W/ FOLIC ACID TABLET (FP) PO SCH (10:19)
[2017-10-16] MEDS: LACOSAMIDE 50 MG TABLET PO SCH ×2 (10:19→22:28)
--- NOTE | 2017-10-16 11:35 | PN ---
[facility] Progress Note (SOAP) Subjective: feeling better no tremor less sweat Objective: 10/16/17 11:33 Vital Signs Temperature 98 F 10/16/17 09:32 Pulse Rate 77 10/16/17 09:32 Respiratory Rate 20 10/16/17 09:32 Blood Pressure 116/63 10/16/17 09:32 O2 Sat by Pulse Oximetry (%) Laboratory Last Values WBC 4.5 K/mm3 (4.0-10.0) 10/14/17 07:40 RBC 4.43 M/mm3 (4.00-5.60) 10/14/17 07:40 Hgb 14.6 GM/dL (11.7-16.9) 10/14/17 07:40 Hct 43.0 % (35.4-49) 10/14/17 07:40 MCV 97.0 fl (80-96) H 10/14/17 07:40 MCH 32.9 pg (25.7-33.7) 10/14/17 07:40 MCHC 33.9 g/dl (32.0-35.9) 10/14/17 07:40 RDW 14.7 % (11.9-15.9) 10/14/17 07:40 Plt Count 180 K/MM3 (134-434) 10/14/17 07:40 MPV 9.1 fl (7.5-11.1) 10/14/17 07:40 Sodium 140 mmol/L (136-145) 10/14/17 07:40 Potassium 4.2 mmol/L (3.5-5.1) 10/14/17 07:40 Chloride 103 mmol/L (98-107) 10/14/17 07:40 Carbon Dioxide 29 mmol/L (21-32) 10/14/17 07:40 Anion Gap 8 (8-16) 10/14/17 07:40 BUN 9 mg/dL (7-18) 10/14/17 07:40 Creatinine 0.9 mg/dL (0.7-1.3) 10/14/17 07:40 Creat Clearance w eGFR > 60 (>60) 10/14/17 07:40 Random Glucose 90 mg/dL (74-106) 10/14/17 07:40 Calcium 9.2 mg/dL (8.5-10.1) 10/14/17 07:40 Total Bilirubin 0.3 mg/dL (0.2-1.0) D 10/14/17 07:40 AST 35 U/L (15-37) D 10/14/17 07:40 ALT 35 U/L (12-78) D 10/14/17 07:40 Alkaline Phosphatase 57 U/L (45-117) D 10/14/17 07:40 Total Protein 7.2 g/dl (6.4-8.2) 10/14/17 07:40 Albumin 3.8 g/dl (3.4-5.0) 10/14/17 07:40 Urine Color Ltyellow 10/14/17 08:15 Urine Appearance Clear 10/14/17 08:15 Urine pH 6.0 (5.0-8.0) 10/14/17 08:15 Ur Specific [place] 1.011 (1.001-1.035) 10/14/17 08:15 Urine Protein Negative (NEGATIVE) 10/14/17 08:15 Urine Glucose (UA) Negative (NEGATIVE) 10/14/17 08:15 Urine Ketones Negative (NEGATIVE) 10/14/17 08:15 Urine Blood Negative (NEGATIVE) 10/14/17 08:15 Urine Nitrite Negative (NEGATIVE) 10/14/17 08:15 Urine Bilirubin Negative (<2.0 mg/dL) 10/14/17 08:15 Urine Urobilinogen Negative mg/dL (0.2-1.0) 10/14/17 08:15 Ur Leukocyte Esterase Negative (NEGATIVE) 10/14/17 08:15 RPR Titer Nonreactive (NONREACTIVE) 10/14/17 07:40 lab noted Assessment: 10/16/17 11:33 mild withdrawal sx Plan: medically supervised detox discuss alcohol addiction "I can control the drinking" "My body needs rest" health teaching on alcohol misuse related to health consequences
[2017-10-16] MEDS: chlordiazePOXIDE HCL 10 MG CAPSULE PO SCH ×2 (17:41→22:28)
[2017-10-16] MEDS: THIAMINE HCL 100 MG TABLET (FP) PO SCH (22:28)
[2017-10-16] MEDS: MELATONIN 5 MG TABLETS PO PRN (22:28)
[2017-10-17] MEDS: chlordiazePOXIDE HCL 10 MG CAPSULE PO SCH (06:26)
--- NOTE | 2017-10-17 09:24 | DS ---
[facility] Detox Discharge Summary Admission Date: 10/13/17 Discharge Date: 10/17/17 - History Present History: Alcohol Dependence Additional Comments: 26 years old male admitted 10/13/17 for alcohol withdrawal sx completed alcohol detox regimen tolerated well denies alcohol withdrawal sx reported well rested alert oriented x 3 no acute distress refuses aftercare arrangement encourage ultilizing [facility] services and self help groups strong recommend follow up nephrology rule out kidney stone - Physical Exam Results Vital Signs: Vital Signs Temperature 96.7 F L 10/17/17 06:28 Pulse Rate 65 10/17/17 06:28 Respiratory Rate 18 10/17/17 06:28 Blood Pressure 119/70 10/17/17 06:28 O2 Sat by Pulse Oximetry (%) Pertinent Admission Physical Exam Findings: alcohol withdrawal sx Vital Signs Temperature 96.7 F L 10/17/17 06:28 Pulse Rate 65 10/17/17 06:28 Respiratory Rate 18 10/17/17 06:28 Blood Pressure 119/70 10/17/17 06:28 O2 Sat by Pulse Oximetry (%) Laboratory Last Values WBC 4.5 K/mm3 (4.0-10.0) 10/14/17 07:40 RBC 4.43 M/mm3 (4.00-5.60) 10/14/17 07:40 Hgb 14.6 GM/dL (11.7-16.9) 10/14/17 07:40 Hct 43.0 % (35.4-49) 10/14/17 07:40 MCV 97.0 fl (80-96) H 10/14/17 07:40 MCH 32.9 pg (25.7-33.7) 10/14/17 07:40 MCHC 33.9 g/dl (32.0-35.9) 10/14/17 07:40 RDW 14.7 % (11.9-15.9) 10/14/17 07:40 Plt Count 180 K/MM3 (134-434) 10/14/17 07:40 MPV 9.1 fl (7.5-11.1) 10/14/17 07:40 Sodium 140 mmol/L (136-145) 10/14/17 07:40 Potassium 4.2 mmol/L (3.5-5.1) 10/14/17 07:40 Chloride 103 mmol/L (98-107) 10/14/17 07:40 Carbon Dioxide 29 mmol/L (21-32) 10/14/17 07:40 Anion Gap 8 (8-16) 10/14/17 07:40 BUN 9 mg/dL (7-18) 10/14/17 07:40 Creatinine 0.9 mg/dL (0.7-1.3) 10/14/17 07:40 Creat Clearance w eGFR > 60 (>60) 10/14/17 07:40 Random Glucose 90 mg/dL (74-106) 10/14/17 07:40 Calcium 9.2 mg/dL (8.5-10.1) 10/14/17 07:40 Total Bilirubin 0.3 mg/dL (0.2-1.0) D 10/14/17 07:40 AST 35 U/L (15-37) D 10/14/17 07:40 ALT 35 U/L (12-78) D 10/14/17 07:40 Alkaline Phosphatase 57 U/L (45-117) D 10/14/17 07:40 Total Protein 7.2 g/dl (6.4-8.2) 10/14/17 07:40 Albumin 3.8 g/dl (3.4-5.0) 10/14/17 07:40 Urine Color Ltyellow 10/14/17 08:15 Urine Appearance Clear 10/14/17 08:15 Urine pH 6.0 (5.0-8.0) 10/14/17 08:15 Ur Specific [place] 1.011 (1.001-1.035) 10/14/17 08:15 Urine Protein Negative (NEGATIVE) 10/14/17 08:15 Urine Glucose (UA) Negative (NEGATIVE) 10/14/17 08:15 Urine Ketones Negative (NEGATIVE) 10/14/17 08:15 Urine Blood Negative (NEGATIVE) 10/14/17 08:15 Urine Nitrite Negative (NEGATIVE) 10/14/17 08:15 Urine Bilirubin Negative (<2.0 mg/dL) 10/14/17 08:15 Urine Urobilinogen Negative mg/dL (0.2-1.0) 10/14/17 08:15 Ur Leukocyte Esterase Negative (NEGATIVE) 10/14/17 08:15 RPR Titer Nonreactive (NONREACTIVE) 10/14/17 07:40 lab noted - Treatment Hospital Course: Detox Protocol Followed, Detoxed Safely, Responded well, Discharged Condition Good, Rehab Referral Accepted Patient has Accepted a Rehab Referral to: [facility] - Medication Discharge Medications: Ambulatory Orders Lacosamide [Vimpat -] 100 mg PO BID 10/13/17 - Diagnosis (1) Alcohol dependence with uncomplicated withdrawal Current Visit: Yes Status: Acute - AMA Did Patient Leave Against Medical Advice: No
[2017-10-17 10:59] VITALS: BP 117/79; PULSE 83; TEMP 97.2
== END 2017-10-17 09:28 | disposition home or self-care (01) | DRG 775 ==
LOC: YASAS 08:54 → Y6N 11:53
PROVIDERS: ADMIT Surgery; ATTEND Surgery
PROC: HZ2ZZZZ Detoxification Services for Substance Abuse Treatment (ICD-10-PCS; principal; 2017-10-13)
DX: F10.230 Alcohol dependence with withdrawal, uncomplicated (principal); F12.20 Cannabis dependence, uncomplicated; G40.509 Epileptic seizures related to external causes, not intractable, without status epilepticus; A63.0 Anogenital (venereal) warts
CPT/HCPCS: 36415; 80053; 81003; 85027; 86593; 87389; 93005; 93010

== ENCOUNTER 2017-10-22 16:23 | Inpatient (IN) | payer OTHER ==
[2017-10-22 18:21] VITALS: BMI 22.0
--- NOTE | 2017-10-22 19:20 | HP ---
Admission [facility] Chief Complaint: ETOH and THC rehab Allergies/Adverse Reactions: Allergies Allergy/AdvReac Type Severity Reaction Status Date / Time No Known Allergies Allergy Verified 10/13/17 11:13 History of Present Illness: 26 yo gentleman here for detox from alcohol. PMHX: Seizure d/o on Vimpat, denies any psychiatric hx. Reports no significant period of sobriety. Denies suicidal / homicidal ideation or suicide attempts. Last detox at [facility] 10/13/17 -10/17/17. Exam Limitations: No Limitations - Ebola screening Have you traveled outside of the country in the last 21 days: No (N) Have you had contact with anyone from an Ebola affected area: No Have you been sick,other than usual withdrawal symptoms: No Do you have a fever: No - Review of Systems Constitutional: No Symptoms Reported EENT: reports: No Symptoms Reported Respiratory: reports: No Symptoms reported Cardiac: reports: No Symptoms Reported GI: reports: No Symptoms Reported : reports: No Symptoms Reported Musculoskeletal: reports: No Symptoms Reported Integumentary: reports: No Symptoms Reported Neuro: reports: See HPI Endocrine: reports: Increased Thirst Hematology: reports: No Symptoms Reported Psychiatric: reports: Orientated x3, Anxious Other Systems: Reviewed and Negative Patient History - Patient Medical History Hx Anemia: No Hx Asthma: No Hx Chronic Obstructive Pulmonary Disease (COPD): No Hx Cancer: No Hx Cardiac Disorders: No Hx Congestive Heart Failure: No Hx Hypertension: No Hx Hypercholesterolemia: No Hx Pacemaker: No HX Cerebrovascular Accident: No Hx Seizures: Yes (one week ago, on meds) Hx Dementia: No Hx Diabetes: No Hx Gastrointestinal Disorders: No Hx Liver Disease: No Hx Genitourinary Disorders: Yes (penile wart) Hx Sexually Transmitted Disorders: No Hx Renal Disease (ESRD): No Hx Thyroid Disease: No Hx Human Immunodeficiency Virus (HIV): No Hx Hepatitis C: No Hx Depression: No Hx Suicide Attempt: No Hx Bipolar Disorder: No Hx Schizophrenia: No - Patient Surgical History Past Surgical History: Yes Hx Neurologic Surgery: No Hx Cataract Extraction: No Hx Cardiac Surgery: No Hx Lung Surgery: No Hx Breast Surgery: No Hx Breast Biopsy: No Hx Abdominal Surgery: No Hx Appendectomy: Yes (at age 20) Hx Cholecystectomy: No Hx Genitourinary Surgery: No Hx Section: No Hx Orthopedic Surgery: No Anesthesia Reaction: No - PPD History Previous Implant?: Yes Documented Results: Negative w/proof Date: 02/09/17 PPD to be Administered?: No - Smoking Cessation Smoking history: Never smoked Have you smoked in the past 12 months: No Hx Chewing Tobacco Use: No Initiated information on smoking cessation: No - Substance & Tx. History Hx Alcohol Use: Yes Hx Substance Use: Yes Substance Use Type: Alcohol, Marijuana Hx Substance Use Treatment: Yes (Last detox at [facility] 10/13/17 -10/17/17.) Family Disease History - Family Disease History Family Disease History: Other: Father (living, etoh), Mother (living, ), Brother (two - living - healthy), Sister (four - living - healthy), Son (two - healthy, ages 4 and 10), Daughter (one - healthy, age 6) Admission Physical Exam [facility] - Vital Signs Vital Signs: Vital Signs - 24 hr 10/22/17 18:19 Temperature 98.2 F Pulse Rate 72 Respiratory 18 Rate Blood Pressure 158/90 - Physical General Appearance: Yes: No Apparent Distress, Nourished, Appropriately Dressed , Anxious HEENTM: Yes: EOMI, Hearing grossly Normal, Normal ENT Inspection, Normocephalic , Normal Voice, PIERRE, Pharynx Normal, Tm's normal Respiratory: Yes: Chest Non-Tender, Lungs Clear, Normal Breath Sounds, No Respiratory Distress, No Accessory Muscle Use Neck: Yes: Within Normal Limits Breast: Yes: Breast Exam Deferred Cardiology: Yes: Regular Rhythm, Regular Rate Abdominal: Yes: Normal Bowel Sounds, Non Tender, Flat, Soft Genitourinary: Yes: Within Normal Limits Back: Yes: Normal Inspection Musculoskeletal: Yes: full range of Motion, Gait Steady, Pelvis Stable Extremities: Yes: Normal Capillary Refill, Normal Inspection, Normal Range of Motion, Non-Tender Neurological: Yes: conductor and engineer II-XII NML intact, Fully Oriented, Alert, Motor Strength 5/5, Depressed Affect Integumentary: Yes: Normal Color, Dry, Warm Lymphatic: Yes: Within Normal Limits - Diagnostic (1) Seizure disorder Current Visit: Yes Status: Chronic Comment: on tx Vimpat (2) Alcohol dependence Current Visit: Yes Status: Acute Qualifiers: Substance use status: uncomplicated Qualified Code(s): F10.20 - Alcohol dependence, uncomplicated (3) Cannabis dependence Current Visit: Yes Status: Chronic [facility] Breath Alcohol Content Breath Alcohol Content: 0 Urine Drug Screen - Results Drug Screen Negative: No Urine Drug Screen Results: THC-Marijuana, BZO-Benzodiazepines Inpatient Rehab Admission - Initial Determination Are CD services needed?: Yes Free of communicable disease: Yes Not in need of hospitalization: Yes - Rehab Admission Criteria Previous failed treatment: Yes Poor recovery environment: Yes Comorbidities: Yes Lacks judgement: Yes Patient is meeting Inpatient Rehab admission criteria:: Yes
[2017-10-22] MEDS ORDERED: ACETAMINOPHEN 325 MG TABLET (FP) PO PRN (19:23)
[2017-10-22] MEDS ORDERED: guaiFENesin/D-METHORPHAN HB 10 ML UNIT-DOSE CUPS PO PRN (19:23)
[2017-10-22] MEDS ORDERED: MAGNESIUM HYDROX 2400MG/30ML ORAL SUSPENSION 30 ML CUP PO PRN (19:23)
[2017-10-22] MEDS ORDERED: MAGNESIUM CITRATE 300 ML BOTTLE PO PRN (19:23)
[2017-10-22] MEDS ORDERED: LOPERAMIDE HCL 2 MG CAPSULE PO PRN (19:23)
[2017-10-22] MEDS ORDERED: IBUPROFEN 400 MG TABLET (FP) PO PRN (19:23)
[2017-10-22] MEDS ORDERED: MENTHOL/PHENOL 1 EACH UD MM PRN (19:23)
[2017-10-22] MEDS ORDERED: MAG HYDROX/AL HYDROX/SIMETH 30 ML UNIT-DOSE CUP PO PRN (19:23)
[2017-10-22] MEDS ORDERED: P-EPHED 60MG/TRIPROLIDI 2.5MG TABLET PO PRN (19:23)
[2017-10-22] MEDS: LACOSAMIDE 50 MG TABLET PO SCH (22:30)
[2017-10-22] MEDS: THIAMINE HCL 100 MG TABLET (FP) PO SCH (22:30)
[2017-10-22] MEDS: MELATONIN 5 MG TABLETS PO PRN (22:30)
[2017-10-22 23:22] LABS: URINE APPEARANCE CLEAR; URINE BILIRUBIN NEGATIVE (<2.0 mg/dL); URINE COLOR LTYELLOW; URINE GLUCOSE (UA) NEGATIVE (NEGATIVE); URINE KETONE NEGATIVE (NEGATIVE); URINE LEUK ESTERASE NEGATIVE (NEGATIVE); URINE NITRITE NEGATIVE (NEGATIVE); URINE PROTEIN NEGATIVE (NEGATIVE); URINE UROBILINOGEN NEGATIVE mg/dL (0.2-1.0)
--- NOTE | 2017-10-23 06:29 | HP ---
Psychiatrist Admission - Data Date of interview: 10/23/17 Admission source: Self-referred Identifying data: This is the first [facility] admission for this 26 years old single Black male, father of 3 children, unemployed with no source of income, homeless Medical History: Significant for seizure disorder and history of treatment for penile warts and appendectomy at age 20 Psychiatric History: Denies history of previous psychiatric treatment Physical/Sexual Abuse/Trauma History: Denies history of emotional, physical or sexual abuse as well as DV relationship Additional Comment: Reports history of 4-5 previous misdemeanor arrests. Denies being on probation at present Vital Signs: Vital Signs - 24 hr 10/22/17 10/23/17 18:19 03:30 Temperature 98.2 F Pulse Rate 72 Respiratory 18 18 Rate Blood Pressure 158/90 Allergies/Adverse Reactions: Allergies Allergy/AdvReac Type Severity Reaction Status Date / Time No Known Allergies Allergy Verified 10/13/17 11:13 Date of last physical exam: 10/22/17 Concur with the findings of this exam: Yes - Substance Abuse/Tx History Hx Alcohol Use: Yes Hx Substance Use: Yes Substance Use Type: Alcohol (Started drinking alcohol at age 17, consumes 5-6 ints of liquor daily. Last drank on 10/22/17), Marijuana (Started smoking marijuana at age 15, consumes one blunts wekly. Last smoked on 10/22/17) Hx Substance Use Treatment: Yes (one recent inpt detox admission @ [facility] inpt rehab) Mental Status Exam - Mental Status Exam Alert and Oriented to: Place, Person Cognitive Function: Fair Patient Appearance: Well Groomed Mood: Anxious Affect: Appropriate Patient Behavior: Cooperative Speech Pattern: Clear Voice Loudness: Normal Thought Process: Intact, Goal Oriented Thought Disorder: Not Present Hallucinations: Denies Suicidal Ideation: Denies Homicidal Ideation: Denies Insight/Judgement: Fair Sleep: Poorly Appetite: Good Muscle strength/Tone: Normal Gait/Station: Normal Psychiatric Findings - Problem List ([place] 1, 2,3) (1) Alcohol dependence Current Visit: Yes Status: Acute Qualifiers: Substance use status: uncomplicated Qualified Code(s): F10.20 - Alcohol dependence, uncomplicated (2) Cannabis abuse Current Visit: Yes Status: Acute (3) Substance-induced sleep disorder Current Visit: Yes Status: Acute (4) Seizure disorder Current Visit: Yes Status: Chronic Comment: on tx Vimpat (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
[2017-10-23] MEDS: PRENATAL VITAMINS W/ FOLIC ACID TABLET (FP) PO SCH (09:49)
[2017-10-23] MEDS ORDERED: PT OWN MED DRAWER 7, Y5N ONE (09:50)
[2017-10-23 10:12] LABS: HEMATOCRIT 42.4 % (35.4-49); HEMOGLOBIN 14.5 GM/dL (11.7-16.9); MCH 32.3 pg (25.7-33.7); MCHC 34.1 g/dl (32.0-35.9); MEAN CELL VOLUME 94.6 fl (80-96); MEAN PLT VOLUME 9.4 fl (7.5-11.1); PLATELET COUNT 275 K/MM3 (134-434); RBC 4.48 M/mm3 (4.00-5.60); RDW 14.2 % (11.9-15.9); WHITE BLOOD COUNT 4.9 K/mm3 (4.0-10.0)
[2017-10-23] MEDS: LACOSAMIDE 50 MG TABLET PO SCH ×2 (10:56→21:55)
--- NOTE | 2017-10-23 12:23 | EKG ---
Test Reason : Blood Pressure : / mmHG Vent. Rate : 072 BPM Atrial Rate : 072 BPM P-R Int : 172 ms QRS Dur : 094 ms QT Int : 410 ms P-R-T Axes : 060 040 032 degrees QTc Int : 448 ms NORMAL SINUS RHYTHM POSSIBLE LEFT ATRIAL ENLARGEMENT BORDERLINE ECG Confirmed by MD CHANTE, ELA ([id number]) on 10/23/2017 12:23:18 PM Referred By: Confirmed By:ELA SHARIF MD
[2017-10-23 14:03] LABS: ALBUMIN 3.7 g/dl (3.4-5.0); ANION GAP 6 (8-16); BLOOD UREA NITROGEN 13 mg/dL (7-18); CALCIUM 9.4 mg/dL (8.5-10.1); CHLORIDE 101 mmol/L (98-107); CO2 28 mmol/L (21-32); GLUCOSE,RANDOM 94 mg/dL (74-106); POTASSIUM 4.3 mmol/L (3.5-5.1); SGOT/AST 49 U/L (15-37); SGPT/ALT 42 U/L (12-78); SODIUM 135 mmol/L (136-145)
[2017-10-23 14:04] LABS: ALK PHOS 58 U/L (45-117); BILIRUBIN,TOTAL 0.5 mg/dL (0.2-1.0); TOT PROT 7.2 g/dl (6.4-8.2)
[2017-10-23] MEDS: THIAMINE HCL 100 MG TABLET (FP) PO SCH (21:55)
[2017-10-23] MEDS: MELATONIN 5 MG TABLETS PO PRN (21:56)
[2017-10-24] MEDS: LACOSAMIDE 50 MG TABLET PO SCH ×2 (10:41→21:31)
[2017-10-24] MEDS: PRENATAL VITAMINS W/ FOLIC ACID TABLET (FP) PO SCH (10:41)
[2017-10-24] MEDS: MELATONIN 5 MG TABLETS PO PRN (21:31)
[2017-10-24] MEDS: THIAMINE HCL 100 MG TABLET (FP) PO SCH (21:31)
[2017-10-25] MEDS: LACOSAMIDE 50 MG TABLET PO SCH ×2 (10:08→22:02)
[2017-10-25] MEDS: PRENATAL VITAMINS W/ FOLIC ACID TABLET (FP) PO SCH (10:08)
[2017-10-25] MEDS: THIAMINE HCL 100 MG TABLET (FP) PO SCH (22:02)
[2017-10-25] MEDS: MELATONIN 5 MG TABLETS PO PRN (22:04)
[2017-10-26] MEDS: PRENATAL VITAMINS W/ FOLIC ACID TABLET (FP) PO SCH (09:38)
[2017-10-26] MEDS: LACOSAMIDE 50 MG TABLET PO SCH ×2 (11:37→22:28)
--- NOTE | 2017-10-26 14:47 | PN ---
[facility] Progress Note Note: Patient seen for c/o feeling faint and dizzy. Resting in bed upon evaluation. In NAD. Alert and oriented x 3. Patient stated "this happens from time to time from my Seizure disorder but I am fine now". Vital Signs Temperature 97.9 F 10/26/17 06:59 Pulse Rate 75 10/26/17 06:59 Respiratory Rate 18 10/26/17 06:59 Blood Pressure 119/74 10/26/17 06:59 O2 Sat by Pulse Oximetry (%) Obj Skin: warm and dry Car: S1S2 Resp: CTA BL Neuro: CN 1-X11 grossly intact, no seizures noted. A/P: Dizziness episode Hx of SZD Continue to monitor clinically continue current treatment
[2017-10-26] MEDS: THIAMINE HCL 100 MG TABLET (FP) PO SCH (22:28)
[2017-10-26] MEDS: MELATONIN 5 MG TABLETS PO PRN (22:28)
[2017-10-27] MEDS: PRENATAL VITAMINS W/ FOLIC ACID TABLET (FP) PO SCH (09:10)
[2017-10-27] MEDS: LACOSAMIDE 50 MG TABLET PO SCH ×2 (09:10→21:44)
[2017-10-27] MEDS: MELATONIN 5 MG TABLETS PO PRN (21:44)
[2017-10-27] MEDS: THIAMINE HCL 100 MG TABLET (FP) PO SCH (21:44)
[2017-10-28] MEDS: PRENATAL VITAMINS W/ FOLIC ACID TABLET (FP) PO SCH (09:59)
[2017-10-28] MEDS: LACOSAMIDE 50 MG TABLET PO SCH ×2 (09:59→21:37)
[2017-10-28] MEDS: THIAMINE HCL 100 MG TABLET (FP) PO SCH (21:37)
[2017-10-28] MEDS: MELATONIN 5 MG TABLETS PO PRN (21:38)
[2017-10-29] MEDS: PRENATAL VITAMINS W/ FOLIC ACID TABLET (FP) PO SCH (10:29)
[2017-10-29] MEDS: LACOSAMIDE 50 MG TABLET PO SCH ×2 (10:29→21:42)
--- NOTE | 2017-10-29 11:25 | PN ---
[facility] Progress Note Note: RAPID RESPONSE CALLED BY RN ON . PATIENT EVALUATED LAYING ON BACK ON NURSING STATION FLOOR. PATIENT ALERT BUT CONFUSED. PER RN, PATIENT HAD 2 EPISODES OF SEIZURE, ONE 40 SECONDS LONG , SECOND 30 SECONDS LONG WITH 10 SECOND INTERVAL WHILE GETTING MORNING MEDICATION. ASSISTED TO FLOOR BY RN. Laboratory Tests 10/22/17 10/23/17 10/23/17 22:30 08:30 08:30 WBC 4.9 RBC 4.48 Hgb 14.5 Hct 42.4 MCV 94.6 MCH 32.3 MCHC 34.1 RDW 14.2 Plt Count 275 D MPV 9.4 Sodium 135 L Potassium 4.3 Chloride 101 Carbon Dioxide 28 Anion Gap 6 L BUN 13 D Creatinine 1.0 Creat Clearance w eGFR > 60 Random Glucose 94 Calcium 9.4 Total Bilirubin 0.5 D AST 49 H D ALT 42 Alkaline Phosphatase 58 Total Protein 7.2 Albumin 3.7 Urine Color Ltyellow Urine Appearance Clear Urine pH 6.0 Ur Specific [place] 1.018 Urine Protein Negative Urine Glucose (UA) Negative Urine Ketones Negative Urine Blood Negative Urine Nitrite Negative Urine Bilirubin Negative Urine Urobilinogen Negative Ur Leukocyte Esterase Negative RPR Titer 10/23/17 08:30 WBC RBC Hgb Hct MCV MCH MCHC RDW Plt Count MPV Sodium Potassium Chloride Carbon Dioxide Anion Gap BUN Creatinine Creat Clearance w eGFR Random Glucose Calcium Total Bilirubin AST ALT Alkaline Phosphatase Total Protein Albumin Urine Color Urine Appearance Urine pH Ur Specific [place] Urine Protein Urine Glucose (UA) Urine Ketones Urine Blood Urine Nitrite Urine Bilirubin Urine Urobilinogen Ur Leukocyte Esterase RPR Titer Nonreactive Vital Signs Temperature 97.7 F 10/29/17 07:09 Pulse Rate 61 10/29/17 07:09 Respiratory Rate 18 10/29/17 07:09 Blood Pressure 124/72 10/29/17 07:09 O2 Sat by Pulse Oximetry (%) OBJ: GENERAL: ALERT AND CONFUSED. NON-VERBAL AND PATIENT TRYING TO TAKE OFF OXYGEN MASK SKIN: DIAPHORETIC CAR: S1S2, RRR. 105, BP 150/82 RESP: CTA BL. O2 SATS ON ROOM AIR 88% EXT: NO EDEMA A/P: SEIZURE DISORDER: UNCONTROLLED 911 CALLED BY RN PATIENT GIVEN O2 VIA MASK AND O2 SATS IMPROVED TO 95% BLOOD SUGAR 118 VITALS RETAKEN AND BP 144/85, HR 105 PATIENT BECAME MORE ALERT AND RESPONSIVE POST-ICTAL TAKEN TO [facility] ER VIA AMBULANCE STRETCHER MEDICALLY STABLE REPORT GIVEN TO DR. GONZALEZ BY ROYAL SCHNEIDER.
[2017-10-29] MEDS: MELATONIN 5 MG TABLETS PO PRN (21:41)
[2017-10-29] MEDS: THIAMINE HCL 100 MG TABLET (FP) PO SCH (21:41)
[2017-10-30] MEDS: PRENATAL VITAMINS W/ FOLIC ACID TABLET (FP) PO SCH (10:02)
[2017-10-30] MEDS: LACOSAMIDE 50 MG TABLET PO SCH (10:02)
--- NOTE | 2017-10-30 14:57 | PN ---
[facility] Progress Note Note: Patient was evaluated yesterday at [facility] seizure and dicahrged on : Keppra 500 mg BID and Imiquioid 25 gm qd Vital Signs Temperature 98.2 F 10/30/17 10:41 Pulse Rate 64 10/30/17 10:41 Respiratory Rate 18 10/30/17 10:41 Blood Pressure 122/83 10/30/17 10:41 O2 Sat by Pulse Oximetry (%) seizures precautions keppra levels 11/01/17 continue to monitor
[2017-10-30] MEDS ORDERED: IMIQUIMOD MC SCH (15:00)
[2017-10-30] MEDS: MELATONIN 5 MG TABLETS PO PRN (21:36)
[2017-10-30] MEDS: THIAMINE HCL 100 MG TABLET (FP) PO SCH (21:36)
[2017-10-30] MEDS: levETIRAcetam 500 MG TABLET (FP) PO SCH (21:36)
[2017-10-31] MEDS: PRENATAL VITAMINS W/ FOLIC ACID TABLET (FP) PO SCH (10:42)
[2017-10-31] MEDS: levETIRAcetam 500 MG TABLET (FP) PO SCH ×2 (10:42→21:50)
[2017-10-31] MEDS ORDERED: COLLOIDAL OATMEAL 1 BAR EACH TP PRN (13:37)
[2017-10-31] MEDS: MELATONIN 5 MG TABLETS PO PRN (21:50)
[2017-10-31] MEDS: THIAMINE HCL 100 MG TABLET (FP) PO SCH (21:50)
[2017-11-01] MEDS: PRENATAL VITAMINS W/ FOLIC ACID TABLET (FP) PO SCH (10:13)
[2017-11-01] MEDS: levETIRAcetam 500 MG TABLET (FP) PO SCH ×2 (10:13→21:52)
[2017-11-01] MEDS: THIAMINE HCL 100 MG TABLET (FP) PO SCH (21:52)
[2017-11-01] MEDS: MELATONIN 5 MG TABLETS PO PRN (21:52)
[2017-11-02] MEDS: levETIRAcetam 500 MG TABLET (FP) PO SCH ×2 (10:09→22:14)
[2017-11-02] MEDS: PRENATAL VITAMINS W/ FOLIC ACID TABLET (FP) PO SCH (10:09)
[2017-11-02] MEDS: THIAMINE HCL 100 MG TABLET (FP) PO SCH (22:14)
[2017-11-02] MEDS: MELATONIN 5 MG TABLETS PO PRN (22:14)
[2017-11-03] MEDS: levETIRAcetam 500 MG TABLET (FP) PO SCH ×2 (10:27→21:43)
[2017-11-03] MEDS: PRENATAL VITAMINS W/ FOLIC ACID TABLET (FP) PO SCH (10:27)
[2017-11-03] MEDS: MELATONIN 5 MG TABLETS PO PRN (21:43)
[2017-11-03] MEDS: THIAMINE HCL 100 MG TABLET (FP) PO SCH (21:43)
[2017-11-04] MEDS: PRENATAL VITAMINS W/ FOLIC ACID TABLET (FP) PO SCH (10:03)
[2017-11-04] MEDS: levETIRAcetam 500 MG TABLET (FP) PO SCH ×2 (10:03→21:36)
--- NOTE | 2017-11-04 16:12 | PN ---
Psychiatric Progress Note Vital Signs: Vital Signs Period Temp Pulse Resp BP Sys/Blackmon Pulse Ox Last 24 Hr 97.6 F 62 18-18 127/67 Date of Session: 11/04/17 Chief Complaint:: Discharge Note HPI: Patient addressing Alcohol and Cannabis Dependence comorbid with Subtance- Induced Sleep Disorder ROS: Seizure Disorder Current Medications: Active Medications Generic Name Dose Route Start Last Admin Trade Name Freq PRN Reason Stop Dose Admin Acetaminophen 650 mg 10/22/17 19:23 Tylenol - PO Q4H PRN FEVER Al Hydroxide/Mg Hydroxide 30 ml 10/22/17 19:23 Mylanta Oral Suspension - PO Q6H PRN DYSPEPSIA Colloidal Oatmeal 1 applic 10/31/17 13:37 Aveeno Soap - TP DAILY PRN HYGEINE Eucalyptus/Menthol/Phenol/Sorbitol 1 each 10/22/17 19:23 Cepastat Lozenge - MM Q4H PRN SORE THROAT Guaifenesin 10 ml 10/22/17 19:23 Robitussin Dm - PO Q6H PRN COUGH Ibuprofen 400 mg 10/22/17 19:23 Motrin - PO Q6H PRN Pain level 4-6 Levetiracetam 500 mg 10/30/17 22:00 11/04/17 10:03 Keppra - PO 500 mg BID FRANCISCO Administration Loperamide HCl 4 mg 10/22/17 19:23 Imodium - PO Q6H PRN DIARRHEA Magnesium Citrate 300 ml 10/22/17 19:23 Citroma - PO Q48H PRN CONSTIPATION Magnesium Hydroxide 30 ml 10/22/17 19:23 Milk Of Magnesia - PO DAILY PRN CONSTIPATION Melatonin 5 mg 10/22/17 22:00 11/03/17 21:43 Melatonin PO 5 mg HS PRN Administration INSOMNIA Multivit/Folic Acid/Iron 1 tab 10/23/17 10:00 11/04/17 10:03 Vitamins (Sjr) - PO 1 tab DAILY FRANCISCO Administration Pseudoephedrine/Triprolidine 1 combo 10/22/17 19:23 Actifed - PO TID PRN NASAL CONGESTION Thiamine HCl 100 mg 10/22/17 22:00 11/03/17 21:43 Vitamin B1 - PO 100 mg HS FRANCISCO Administration Current Side Effect: No Lab tests ordered: Yes Lab tests reviewed: Yes Provider note:: Patient will complete this program on 11/05/17. He has met his treatment goals and will continue to address his outpatient treatment at [facility]. Told bid writer that from his participation in this program, he has learned the importance of making meetings. He is stable for discharge on 11/05/17 Total face to face time:: 35 Mental Status Exam - Mental Status Exam Alert and Oriented to: Time, Place, Person Cognitive Function: Fair Patient Appearance: Well Groomed Mood: Hopeful, Euthymic Affect: Appropriate Patient Behavior: Cooperative Speech Pattern: Clear Voice Loudness: Normal Thought Process: Intact, Goal Oriented Thought Disorder: Not Present Hallucinations: Denies Suicidal Ideation: Denies Homicidal Ideation: Denies Insight/Judgement: Fair Sleep: Well Appetite: Good Muscle strength/Tone: Normal Gait/Station: Normal Psychiatric Treatment Plan - Problem List (1) Alcohol dependence Current Visit: Yes Qualifiers: Substance use status: uncomplicated Qualified Code(s): F10.20 - Alcohol dependence, uncomplicated (2) Cannabis abuse Current Visit: Yes (3) Substance-induced sleep disorder Current Visit: Yes (4) Seizure disorder Current Visit: No Comment: on tx Vimpat (5) Genital warts Current Visit: No Initial treatment plan: Patient will be discharged tomorrow and referred to [facility] for outpatient treatment
[2017-11-04] MEDS: MELATONIN 5 MG TABLETS PO PRN (21:36)
[2017-11-04] MEDS: THIAMINE HCL 100 MG TABLET (FP) PO SCH (21:36)
[2017-11-05 07:04] VITALS: BP 141/88; PULSE 73; TEMP 97.7
[2017-11-05] MEDS: PRENATAL VITAMINS W/ FOLIC ACID TABLET (FP) PO SCH (09:19)
[2017-11-05] MEDS: levETIRAcetam 500 MG TABLET (FP) PO SCH (09:19)
== END 2017-11-05 09:25 | disposition home or self-care (01) | DRG 772 ==
LOC: YASAS 16:23 → Y3W 19:48
PROVIDERS: ADMIT Psychiatry & Neurology Psychiatry; ATTEND Psychiatry & Neurology Psychiatry
PROC: HZ42ZZZ Group Counseling for Substance Abuse Treatment, Cognitive-Behavioral (ICD-10-PCS; principal; 2017-10-22)
DX: F10.20 Alcohol dependence, uncomplicated (principal); F12.20 Cannabis dependence, uncomplicated; F19.282 Other psychoactive substance dependence with psychoactive substance-induced sleep disorder; G40.909 Epilepsy, unspecified, not intractable, without status epilepticus; A63.0 Anogenital (venereal) warts
CPT/HCPCS: 36415; 80053; 81003; 82962; 85027; 86593; 93005; 93010; G0480

== ENCOUNTER 2017-12-11 13:15 | Inpatient (IN) | payer OTHER ==
[2017-12-11 14:32] VITALS: BMI 21.6
--- NOTE | 2017-12-11 19:25 | HP ---
"CIWA Score - CIWA Score Nausea/Vomitin-No Nausea/No Vomiting Muscle Tremors: 1-None Visible, but [place] Anxiety: 4-Mod. Anxious/Guarded Agitation: 3 Paroxysmal Sweats: 4-Forehead w/Sweat Beads Orientation: 0-Oriented Tacttile Disturbances: 0-None Auditory Disturbances: 0-None Visual Disturbances: 0-None Headache: 0-None Present CIWA-Ar Total Score: 12 Admission ROS BHS - HPI Chief Complaint: Here for alcohol withdrawal. Allergies/Adverse Reactions: Allergies Allergy/AdvReac Type Severity Reaction Status Date / Time No Known Allergies Allergy Verified 12/11/17 16:50 History of Present Illness: 27 yom w/ hx alcohol use disorder since age and previous detox and rehab episodes. Has had blackout episodes in the past. Has only been able to maintain sobriety for 1 week. Friends and significant other have a drinking disorder. Hx. Seizures despite being on anti-seizure medications. Smokes marijuana, but states minimal use and not daily. Denies heroin or illicit pill use. States has warts from unprotected sex while inebriated. States warts are itchy. Search Terms: Jose Thomas, 1990 Search Date: 12/11/2017 07:16:35 PM The Drug Utilization Report below displays all of the controlled substance prescriptions, if any, that your patient has filled in the last twelve months. The information displayed on this report is compiled from pharmacy submissions to the Department, and accurately reflects the information as submitted by the pharmacies. This report was requested by: Emily Chapa | Reference #: [id number] . Patient Name: Jose Thomas Date: 1990 Address: [address] [place] [address] Sex: Male Rx Written Rx Dispensed Drug Quantity Days Supply Prescriber Name 08/27/2017 08/27/2017 vimpat 100 mg tablet 60 30 Atilio Post A 08/19/2017 08/19/2017 vimpat 100 mg tablet 20 10 Seng Godron 08/06/2017 08/10/2017 vimpat 100 mg tablet 20 10 Buster Garcia MD 06/24/2017 06/28/2017 vimpat 100 mg tablet 60 30 Bekah Healy MD Exam Limitations: No Limitations - Ebola screening Have you traveled outside of the country in the last 21 days: No Have you had contact with anyone from an Ebola affected area: No Have you been sick,other than usual withdrawal symptoms: No Do you have a fever: No - Review of Systems Constitutional: Chills, Diaphoresis, Loss of Appetite (States occurs w/ withdrawal), Changes in sleep (Feels the problem of sleeping is r/t Keppra. States PCP states r/t withdrawal) EENT: reports: No Symptoms Reported Respiratory: reports: No Symptoms reported Cardiac: reports: Other (Hx heart murmur. Denies CP/SOB) GI: reports: Other (Bowel movements triggered by Keppra. BM wnl consistentcy.) : reports: Lesions (Has itchy lesions on scrotum states told had warts. Denies penile discharge.) Musculoskeletal: reports: No Symptoms Reported Integumentary: reports: Pruritus (Twice a month has itching of body w/o rash.) Neuro: reports: Seizure (On keppra. Last seizure October 2017), Tremors (r/t withdrawal) Endocrine: reports: No Symptoms Reported Hematology: reports: No Symptoms Reported Psychiatric: reports: Orientated x3, Agitated, Anxious Patient History - Patient Medical History Hx Anemia: No Hx Asthma: No Hx Chronic Obstructive Pulmonary Disease (COPD): No Hx Cancer: No Hx Cardiac Disorders: No Hx Congestive Heart Failure: No Hx Hypertension: No Hx Hypercholesterolemia: No Hx Pacemaker: No HX Cerebrovascular Accident: No Hx Seizures: Yes (alcohol related-last episode was in 10/2017) Hx Dementia: No Hx Diabetes: No Hx Gastrointestinal Disorders: No Hx Liver Disease: No Hx Genitourinary Disorders: No Hx Sexually Transmitted Disorders: No Hx Renal Disease (ESRD): No Hx Thyroid Disease: No Hx Human Immunodeficiency Virus (HIV): No Hx Hepatitis C: No Hx Depression: No Hx Suicide Attempt: No Hx Bipolar Disorder: No Hx Schizophrenia: No - Patient Surgical History Past Surgical History: Yes Hx Neurologic Surgery: No Hx Cataract Extraction: No Hx Cardiac Surgery: No Hx Lung Surgery: No Hx Breast Surgery: No Hx Breast Biopsy: No Hx Abdominal Surgery: No Hx Appendectomy: Yes (at age 20) Hx Cholecystectomy: No Hx Genitourinary Surgery: No Hx Section: No Hx Orthopedic Surgery: No Anesthesia Reaction: No - PPD History Previous Implant?: Yes Documented Results: Negative w/proof Implanted On Prior R Admission?: Yes Date: 02/09/17 Results: 0 mm PPD to be Administered?: No - Smoking Cessation Smoking history: Never smoked Have you smoked in the past 12 months: No Aproximately how many cigarettes per day: 0 Hx Chewing Tobacco Use: No Initiated information on smoking cessation: No - Substance & Tx. History Hx Alcohol Use: Yes Hx Substance Use: Yes Substance Use Type: Alcohol, Marijuana Hx Substance Use Treatment: Yes (detox and rehab. ) - Substances Abused Alcohol-vodka Route: Oral Frequency: Daily Amount used: 3-4 pts Age of first use: 13 Date of Last Use: 12/11/17 (10 am ) Marijuana Route: Smoking Frequency: 1-2 times per week Amount used: $5 Age of first use: 14 Date of Last Use: 12/11/17 Family Disease History - Family Disease History Family Disease History: Other: Father (living, etoh), Mother (living, ), Brother (two - living - healthy), Sister (four - living - healthy), Son (two - healthy, ages 4 and 10), Daughter (one - healthy, age 6) Admission Physical Exam S - Vital Signs Vital Signs: Vital Signs - 24 hr 12/11/17 14:26 Temperature 98.3 F Pulse Rate 77 Respiratory 20 Rate Blood Pressure 129/75 - Physical General Appearance: Yes: Tremorous (of hands w/ arms extended), Sweating (on forehead) HEENTM: Yes: EOMI, Hearing grossly Normal, PIERRE Respiratory: Yes: Chest Non-Tender, Lungs Clear, Normal Breath Sounds, No Respiratory Distress Neck: Yes: No masses,lesions,Nodules, Supple Breast: Yes: Breast Exam Deferred Cardiology: Yes: Regular Rhythm, Regular Rate, S1, S2, Murmur (Cardiac mumur noted) Abdominal: Yes: Normal Bowel Sounds, Non Tender, Flat, Soft Genitourinary: Yes: Other (Scrotum w/ multiple scattered skin-tone cauliflower lesions w/o erythema or increased warmth approx 3 mm to 10 mm in size.) Back: Yes: Normal Inspection Musculoskeletal: Yes: full range of Motion, Gait Steady Extremities: Yes: Normal Capillary Refill, Normal Range of Motion, Non-Tender, Tremors (of hands w/ arms extended) Neurological: Yes: caption writer II-XII NML intact, Fully Oriented, Alert, Motor Strength 5/5 Integumentary: Yes: Normal Color, Dry, Warm, Other (Healing abrasions on (R) hand) Lymphatic: Yes: Within Normal Limits - Diagnostic (1) Murmur, cardiac Current Visit: Yes Status: Chronic (2) Alcohol dependence with uncomplicated withdrawal Current Visit: Yes Status: Acute (3) Cannabis abuse Current Visit: Yes Status: Chronic (4) History of seizure Current Visit: Yes Status: Chronic (5) Genital warts Current Visit: Yes Status: Chronic Cleared for Admission [facility] - Detox or Rehab [facility] Level of Care: Medically Managed Detox Regimen/Protocol: Librium [facility] Breath Alcohol Content Breath Alcohol Content: 0.050 Urine Drug Screen - Results Drug Screen Negative: No Urine Drug Screen Results: THC-Marijuana"
[2017-12-11] MEDS ORDERED: chlordiazePOXIDE HCL 25 MG CAPSULE PO PRN (20:08)
[2017-12-11] MEDS ORDERED: guaiFENesin/D-METHORPHAN HB 10 ML UNIT-DOSE CUPS PO PRN (20:08)
[2017-12-11] MEDS ORDERED: MAGNESIUM HYDROX 2400MG/30ML ORAL SUSPENSION 30 ML CUP PO PRN (20:08)
[2017-12-11] MEDS ORDERED: hydrOXYzine PAMOATE 50 MG CAPSULE (FP) PO PRN (20:08)
[2017-12-11] MEDS ORDERED: MAGNESIUM CITRATE 300 ML BOTTLE PO PRN (20:08)
[2017-12-11] MEDS ORDERED: P-EPHED 60MG/TRIPROLIDI 2.5MG TABLET PO PRN (20:08)
[2017-12-11] MEDS ORDERED: IBUPROFEN 400 MG TABLET (FP) PO PRN (20:08)
[2017-12-11] MEDS ORDERED: MENTHOL/PHENOL 1 EACH UD MM PRN (20:08)
[2017-12-11] MEDS ORDERED: LOPERAMIDE HCL 2 MG CAPSULE PO PRN (20:08)
[2017-12-11] MEDS ORDERED: MAG HYDROX/AL HYDROX/SIMETH 30 ML UNIT-DOSE CUP PO PRN (20:08)
[2017-12-11] MEDS ORDERED: ACETAMINOPHEN 325 MG TABLET (FP) PO PRN (20:08)
[2017-12-11] MEDS ORDERED: chlordiazePOXIDE HCL 25 MG CAPSULE PO ONE (20:30)
[2017-12-11] MEDS ORDERED: ACYCLOVIR 400 MG TABLET PO SCH (22:00)
[2017-12-11] MEDS: chlordiazePOXIDE HCL 25 MG CAPSULE PO SCH (22:37)
[2017-12-11] MEDS: levETIRAcetam 500 MG TABLET (FP) PO SCH (22:37)
[2017-12-11] MEDS: THIAMINE HCL 100 MG TABLET (FP) PO SCH (22:37)
[2017-12-11] MEDS: ACYCLOVIR 400 MG TABLET PO SCH (23:21)
[2017-12-12] MEDS: chlordiazePOXIDE HCL 25 MG CAPSULE PO SCH ×4 (06:08→22:15)
[2017-12-12] MEDS: ACYCLOVIR 400 MG TABLET PO SCH ×3 (06:10→22:16)
[2017-12-12 10:04] LABS: HEMATOCRIT 41.2 % (35.4-49); HEMOGLOBIN 14.4 GM/dL (11.7-16.9); MCH 32.6 pg (25.7-33.7); MCHC 34.8 g/dl (32.0-35.9); MEAN CELL VOLUME 93.5 fl (80-96); MEAN PLT VOLUME 9.5 fl (7.5-11.1); PLATELET COUNT 178 K/MM3 (134-434); RBC 4.41 M/mm3 (4.00-5.60); RDW 13.5 % (11.9-15.9); WHITE BLOOD COUNT 3.8 K/mm3 (4.0-10.0)
[2017-12-12 10:13] LABS: CHLORIDE 102 mmol/L (98-107); POTASSIUM 3.8 mmol/L (3.5-5.1); SODIUM 140 mmol/L (136-145)
--- NOTE | 2017-12-12 10:34 | EKG ---
Test Reason : Blood Pressure : / mmHG Vent. Rate : 056 BPM Atrial Rate : 056 BPM P-R Int : 144 ms QRS Dur : 102 ms QT Int : 412 ms P-R-T Axes : -06 069 097 degrees QTc Int : 397 ms SINUS BRADYCARDIA POSSIBLE LATERAL INFARCT , AGE UNDETERMINED ABNORMAL ECG WHEN COMPARED WITH ECG OF 22-OCT-2017 23:16, BORDERLINE CRITERIA FOR LATERAL INFARCT ARE NOW PRESENT QT HAS SHORTENED Confirmed by RENZO EISENBERG, DIAMOND ([id number]) on 12/12/2017 10:34:16 AM Referred By: Confirmed By:DIAMOND MULLER MD
[2017-12-12] MEDS: PRENATAL VITAMINS W/ FOLIC ACID TABLET (FP) PO SCH (10:36)
[2017-12-12] MEDS: levETIRAcetam 500 MG TABLET (FP) PO SCH ×2 (10:36→22:16)
[2017-12-12 10:54] LABS: ALBUMIN 3.6 g/dl (3.4-5.0); ALK PHOS 63 U/L (45-117); ANION GAP 10 (8-16); BILIRUBIN,TOTAL 0.7 mg/dL (0.2-1.0); BLOOD UREA NITROGEN 8 mg/dL (7-18); CALCIUM 9.5 mg/dL (8.5-10.1); CO2 28 mmol/L (21-32); CREATININE 0.9 mg/dL (0.7-1.3); GLUCOSE,RANDOM 90 mg/dL (74-106); SGOT/AST 36 U/L (15-37); SGPT/ALT 25 U/L (12-78); TOT PROT 7.1 g/dl (6.4-8.2)
--- NOTE | 2017-12-12 13:10 | PN ---
S CIWA - CIWA Score Nausea/Vomitin-No Nausea/No Vomiting Muscle Tremors: 4-Moderate,w/Arms Extend Anxiety: 4-Mod. Anxious/Guarded Agitation: 4-Moderately Restless Paroxysmal Sweats: 1-Minimal Palms Moist Orientation: 0-Oriented Tacttile Disturbances: 0-None Auditory Disturbances: 0-None Visual Disturbances: 0-None Headache: 0-None Present CIWA-Ar Total Score: 13 BHS Progress Note (SOAP) Subjective: ANXIETY,SWEATS,FATIGUE. Objective: 12/12/17 13:09 Vital Signs 12/12/17 09:07 Temperature 97.6 F Pulse Rate 58 L Respiratory 18 Rate Blood Pressure 123/75 Laboratory Tests 12/12/17 12/12/17 12/12/17 07:30 07:30 07:30 WBC 3.8 L RBC 4.41 Hgb 14.4 Hct 41.2 MCV 93.5 MCH 32.6 MCHC 34.8 RDW 13.5 Plt Count 178 D MPV 9.5 Sodium 140 Potassium 3.8 D Chloride 102 Carbon Dioxide 28 Anion Gap 10 BUN 8 Creatinine 0.9 Creat Clearance w eGFR > 60 Random Glucose 90 Calcium 9.5 Total Bilirubin 0.7 AST 36 D ALT 25 D Alkaline Phosphatase 63 Total Protein 7.1 Albumin 3.6 HIV 1&2 Antibody Screen Negative HIV P24 Antigen Negative Assessment: 12/12/17 13:09 WITHDRAWAL SX Plan: CONTINUE DETOX
--- NOTE | 2017-12-12 15:46 | CONSULT ---
[facility] Psychiatric Consult - Data Date of interview: 12/12/17 Admission source: [facility] Identifying data: Readmission to [facility] for this 27 y/o AA male seeking detox treatment on for alcohol and cannabis dependence.Patient is ,a father of two,homeless,unemployed and deprived of any source of income. Substance Abuse History: Confirmed by patient in this interview.Smoking history : Never smoked. Have you smoked in the past 12 months: No. Aproximately how many cigarettes per day: 0. Hx Chewing Tobacco Use: No. Initiated information on smoking cessation: No. - Substance & Tx. History. Hx Alcohol Use: Yes. Hx Substance Use: Yes. Substance Use Type: Alcohol, Marijuana. Hx Substance Use Treatment: Yes (detox and rehab. ). - Substances Abused. Alcohol-vodka. Route: Oral. Frequency: Daily. Amount used: 3-4 pts. Age of first use: 13. Date of Last Use: 12/11/17 (10 am ). Marijuana. Route: Smoking. Frequency : 1-2 times per week. Amount used: $5. Age of first use: 14. Date of Last Use : 12/11/17 Medical History: Seizure disorder,antecedent of appendectomy (age 20) and a history of treatment for penile warts. Psychiatric History: Patient denies. Physical/Sexual Abuse/Trauma History: Patient denies. Additional Comment: Urine Drug Screen Results: THC-Marijuana.Noted. Mental Status Exam - Mental Status Exam Alert and Oriented to: Time, Place, Person Cognitive Function: Good Patient Appearance: Well Groomed Mood: Hostile, Nervous, Withdrawn, Irritable Affect: Mood Congruent Patient Behavior: Fatigued, Guarded (superficially cooperative) Speech Pattern: Clear Voice Loudness: Normal Thought Process: Goal Oriented Thought Disorder: Not Present Hallucinations: Denies Suicidal Ideation: Denies Homicidal Ideation: Denies Insight/Judgement: Poor Sleep: Well Appetite: Good Muscle strength/Tone: Normal Gait/Station: Normal Psychiatric Findings - Problem List ([place] 1, 2,3) (1) Alcohol dependence with uncomplicated withdrawal Current Visit: Yes Status: Acute (2) Cannabis dependence, uncomplicated Current Visit: Yes Status: Acute (3) Substance induced mood disorder Current Visit: Yes Status: Suspected - Initial Treatment Plan Initial Treatment Plan: Psychoeducation.Sleep hygiene.Detoxification.Observation.
[2017-12-12 22:15] LABS: URINE APPEARANCE CLEAR; URINE BILIRUBIN NEGATIVE (<2.0 mg/dL); URINE COLOR STRAW; URINE GLUCOSE (UA) NEGATIVE (NEGATIVE); URINE KETONE NEGATIVE (NEGATIVE); URINE LEUK ESTERASE NEGATIVE (NEGATIVE); URINE NITRITE NEGATIVE (NEGATIVE); URINE PROTEIN NEGATIVE (NEGATIVE); URINE UROBILINOGEN NEGATIVE mg/dL (0.2-1.0)
[2017-12-12] MEDS: THIAMINE HCL 100 MG TABLET (FP) PO SCH (22:15)
[2017-12-13] MEDS: chlordiazePOXIDE HCL 25 MG CAPSULE PO SCH ×3 (05:47→17:36)
[2017-12-13] MEDS: ACYCLOVIR 400 MG TABLET PO SCH ×3 (05:47→22:28)
[2017-12-13] MEDS: levETIRAcetam 500 MG TABLET (FP) PO SCH ×2 (10:34→22:28)
[2017-12-13] MEDS: PRENATAL VITAMINS W/ FOLIC ACID TABLET (FP) PO SCH (10:34)
--- NOTE | 2017-12-13 16:51 | PN ---
[facility] CIWA - CIWA Score Nausea/Vomitin-No Nausea/No Vomiting Muscle Tremors: 2 Anxiety: 3 Agitation: 3 Paroxysmal Sweats: 2 Orientation: 0-Oriented Tacttile Disturbances: 1-Very Mild Itch/Numbness Auditory Disturbances: 0-None Visual Disturbances: 1-Very Mild Sensitivity Headache: 0-None Present CIWA-Ar Total Score: 12 S Progress Note (SOAP) Subjective: tire, fatigue, imitable, interrupted sleep Objective: 12/13/17 16:49 Vital Signs Temperature 97.5 F L 12/13/17 13:33 Pulse Rate 79 12/13/17 13:33 Respiratory Rate 18 12/13/17 13:33 Blood Pressure 133/81 12/13/17 13:33 O2 Sat by Pulse Oximetry (%) Laboratory Last Values WBC 3.8 K/mm3 (4.0-10.0) L 12/12/17 07:30 RBC 4.41 M/mm3 (4.00-5.60) 12/12/17 07:30 Hgb 14.4 GM/dL (11.7-16.9) 12/12/17 07:30 Hct 41.2 % (35.4-49) 12/12/17 07:30 MCV 93.5 fl (80-96) 12/12/17 07:30 MCH 32.6 pg (25.7-33.7) 12/12/17 07:30 MCHC 34.8 g/dl (32.0-35.9) 12/12/17 07:30 RDW 13.5 % (11.9-15.9) 12/12/17 07:30 Plt Count 178 K/MM3 (134-434) D 12/12/17 07:30 MPV 9.5 fl (7.5-11.1) 12/12/17 07:30 Sodium 140 mmol/L (136-145) 12/12/17 07:30 Potassium 3.8 mmol/L (3.5-5.1) D 12/12/17 07:30 Chloride 102 mmol/L (98-107) 12/12/17 07:30 Carbon Dioxide 28 mmol/L (21-32) 12/12/17 07:30 Anion Gap 10 (8-16) 12/12/17 07:30 BUN 8 mg/dL (7-18) 12/12/17 07:30 Creatinine 0.9 mg/dL (0.7-1.3) 12/12/17 07:30 Creat Clearance w eGFR > 60 (>60) 12/12/17 07:30 Random Glucose 90 mg/dL (74-106) 12/12/17 07:30 Calcium 9.5 mg/dL (8.5-10.1) 12/12/17 07:30 Total Bilirubin 0.7 mg/dL (0.2-1.0) 12/12/17 07:30 AST 36 U/L (15-37) D 12/12/17 07:30 ALT 25 U/L (12-78) D 12/12/17 07:30 Alkaline Phosphatase 63 U/L (45-117) 12/12/17 07:30 Total Protein 7.1 g/dl (6.4-8.2) 12/12/17 07:30 Albumin 3.6 g/dl (3.4-5.0) 12/12/17 07:30 Urine Color Straw 12/12/17 20:30 Urine Appearance Clear 12/12/17 20:30 Urine pH 6.0 (5.0-8.0) 12/12/17 20:30 Ur Specific [place] 1.009 (1.001-1.035) 12/12/17 20:30 Urine Protein Negative (NEGATIVE) 12/12/17 20:30 Urine Glucose (UA) Negative (NEGATIVE) 12/12/17 20:30 Urine Ketones Negative (NEGATIVE) 12/12/17 20:30 Urine Blood Negative (NEGATIVE) 12/12/17 20:30 Urine Nitrite Negative (NEGATIVE) 12/12/17 20:30 Urine Bilirubin Negative (<2.0 mg/dL) 12/12/17 20:30 Urine Urobilinogen Negative mg/dL (0.2-1.0) 12/12/17 20:30 Ur Leukocyte Esterase Negative (NEGATIVE) 12/12/17 20:30 RPR Titer Nonreactive (NONREACTIVE) 12/12/17 07:30 HIV 1&2 Antibody Screen Negative 12/12/17 07:30 HIV P24 Antigen Negative 12/12/17 07:30 AO x3 no distress full rom ambulating in the unit Assessment: 12/13/17 16:50 withdrawal symptoms Plan: continue detox continue to monitor
[2017-12-13] MEDS: MELATONIN 5 MG TABLETS PO PRN (22:28)
[2017-12-13] MEDS: THIAMINE HCL 100 MG TABLET (FP) PO SCH (22:28)
[2017-12-13] MEDS: chlordiazePOXIDE 5 MG CAPSULE PO SCH (22:28)
[2017-12-14] MEDS: chlordiazePOXIDE 5 MG CAPSULE PO SCH ×3 (05:54→17:43)
[2017-12-14] MEDS: ACYCLOVIR 400 MG TABLET PO SCH ×3 (06:23→22:27)
[2017-12-14] MEDS: levETIRAcetam 500 MG TABLET (FP) PO SCH ×2 (10:37→22:26)
[2017-12-14] MEDS: PRENATAL VITAMINS W/ FOLIC ACID TABLET (FP) PO SCH (10:37)
--- NOTE | 2017-12-14 14:38 | PN ---
BHS Progress Note (SOAP) Subjective: here for alcohol withdrawal treatment- no complaitns today Objective: 12/14/17 14:37 Vital Signs - 24 hr 12/13/17 12/13/17 12/14/17 18:43 22:05 06:49 Temperature 98 F 96.9 F L 97.2 F L Pulse Rate 74 75 65 Respiratory 18 16 18 Rate Blood Pressure 138/80 131/80 109/72 12/14/17 12/14/17 09:43 14:19 Temperature 98.8 F 98.6 F Pulse Rate 70 64 Respiratory 18 18 Rate Blood Pressure 121/87 110/78 Laboratory Tests 12/12/17 12/12/17 12/12/17 07:30 07:30 07:30 WBC 3.8 L RBC 4.41 Hgb 14.4 Hct 41.2 MCV 93.5 MCH 32.6 MCHC 34.8 RDW 13.5 Plt Count 178 D MPV 9.5 Sodium 140 Potassium 3.8 D Chloride 102 Carbon Dioxide 28 Anion Gap 10 BUN 8 Creatinine 0.9 Creat Clearance w eGFR > 60 Random Glucose 90 Calcium 9.5 Total Bilirubin 0.7 AST 36 D ALT 25 D Alkaline Phosphatase 63 Total Protein 7.1 Albumin 3.6 Urine Color Urine Appearance Urine pH Ur Specific [place] Urine Protein Urine Glucose (UA) Urine Ketones Urine Blood Urine Nitrite Urine Bilirubin Urine Urobilinogen Ur Leukocyte Esterase RPR Titer HIV 1&2 Antibody Screen Negative HIV P24 Antigen Negative 12/12/17 12/12/17 07:30 20:30 WBC RBC Hgb Hct MCV MCH MCHC RDW Plt Count MPV Sodium Potassium Chloride Carbon Dioxide Anion Gap BUN Creatinine Creat Clearance w eGFR Random Glucose Calcium Total Bilirubin AST ALT Alkaline Phosphatase Total Protein Albumin Urine Color Straw Urine Appearance Clear Urine pH 6.0 Ur Specific [place] 1.009 Urine Protein Negative Urine Glucose (UA) Negative Urine Ketones Negative Urine Blood Negative Urine Nitrite Negative Urine Bilirubin Negative Urine Urobilinogen Negative Ur Leukocyte Esterase Negative RPR Titer Nonreactive HIV 1&2 Antibody Screen HIV P24 Antigen grossly nl PE nl labs and VS Assessment: 12/14/17 14:38 alcohol withdrawal: continue protocol for alcohol
[2017-12-14] MEDS: chlordiazePOXIDE HCL 10 MG CAPSULE PO SCH (22:26)
[2017-12-14] MEDS: THIAMINE HCL 100 MG TABLET (FP) PO SCH (22:26)
[2017-12-14] MEDS: MELATONIN 5 MG TABLETS PO PRN (22:27)
[2017-12-15] MEDS: ACYCLOVIR 400 MG TABLET PO SCH (06:00)
[2017-12-15] MEDS: chlordiazePOXIDE HCL 10 MG CAPSULE PO SCH (06:00)
[2017-12-15 06:27] VITALS: BP 127/81; PULSE 67; TEMP 98
--- NOTE | 2017-12-15 19:08 | PN ---
BHS Progress Note (SOAP) Subjective: Patient denies current Detox symptoms and reports that he feels well overall. Objective: PATIENT A & O X 3, OBSERVED AMBULATING ON UNIT. NO ACUTE DISTRESS. 12/15/17 19:07 Vital Signs Temperature 98 F 12/15/17 06:26 Pulse Rate 67 12/15/17 06:26 Respiratory Rate 18 12/15/17 06:26 Blood Pressure 127/81 12/15/17 06:26 O2 Sat by Pulse Oximetry (%) Laboratory Tests 12/12/17 12/12/17 12/12/17 07:30 07:30 07:30 WBC 3.8 L RBC 4.41 Hgb 14.4 Hct 41.2 MCV 93.5 MCH 32.6 MCHC 34.8 RDW 13.5 Plt Count 178 D MPV 9.5 Sodium 140 Potassium 3.8 D Chloride 102 Carbon Dioxide 28 Anion Gap 10 BUN 8 Creatinine 0.9 Creat Clearance w eGFR > 60 Random Glucose 90 Calcium 9.5 Total Bilirubin 0.7 AST 36 D ALT 25 D Alkaline Phosphatase 63 Total Protein 7.1 Albumin 3.6 Urine Color Urine Appearance Urine pH Ur Specific [place] Urine Protein Urine Glucose (UA) Urine Ketones Urine Blood Urine Nitrite Urine Bilirubin Urine Urobilinogen Ur Leukocyte Esterase RPR Titer HIV 1&2 Antibody Screen Negative HIV P24 Antigen Negative 12/12/17 12/12/17 07:30 20:30 WBC RBC Hgb Hct MCV MCH MCHC RDW Plt Count MPV Sodium Potassium Chloride Carbon Dioxide Anion Gap BUN Creatinine Creat Clearance w eGFR Random Glucose Calcium Total Bilirubin AST ALT Alkaline Phosphatase Total Protein Albumin Urine Color Straw Urine Appearance Clear Urine pH 6.0 Ur Specific [place] 1.009 Urine Protein Negative Urine Glucose (UA) Negative Urine Ketones Negative Urine Blood Negative Urine Nitrite Negative Urine Bilirubin Negative Urine Urobilinogen Negative Ur Leukocyte Esterase Negative RPR Titer Nonreactive HIV 1&2 Antibody Screen HIV P24 Antigen LABS NOTED. Assessment: 12/15/17 19:07 COMPLETION OF DETOX REGIMEN. Plan: PATIENT SCHEDULED FOR DISCHARGE FROM DETOX UNIT TODAY.
--- NOTE | 2017-12-15 19:11 | DS ---
[facility] Detox Discharge Summary Admission Date: 12/11/17 Discharge Date: 12/15/17 - History Present History: Alcohol Dependence, Cannabis Dependence Additional Comments: PATIENT GOING HOME AND RETURNING TO WORK. PATIENT ADVISED TO CONSIDER LOCAL 12- STEP / NA / AA OUTPATIENT SUPPORT GROUPS FOR AFTERCARE. PATIENT WAS DISCHARGED FROM DETOX UNIT IN STABLE MEDICAL CONDITION. Pertinent Past History: History of Seizure (ETOH-Related), History of Genital Warts, History of Cardiac Murmur. - Physical Exam Results Vital Signs: Vital Signs Temperature 98 F 12/15/17 06:26 Pulse Rate 67 12/15/17 06:26 Respiratory Rate 18 12/15/17 06:26 Blood Pressure 127/81 12/15/17 06:26 O2 Sat by Pulse Oximetry (%) Pertinent Admission Physical Exam Findings: WITHDRAWAL SYMPTOMS. Laboratory Tests 12/12/17 12/12/17 12/12/17 07:30 07:30 07:30 WBC 3.8 L RBC 4.41 Hgb 14.4 Hct 41.2 MCV 93.5 MCH 32.6 MCHC 34.8 RDW 13.5 Plt Count 178 D MPV 9.5 Sodium 140 Potassium 3.8 D Chloride 102 Carbon Dioxide 28 Anion Gap 10 BUN 8 Creatinine 0.9 Creat Clearance w eGFR > 60 Random Glucose 90 Calcium 9.5 Total Bilirubin 0.7 AST 36 D ALT 25 D Alkaline Phosphatase 63 Total Protein 7.1 Albumin 3.6 Urine Color Urine Appearance Urine pH Ur Specific [place] Urine Protein Urine Glucose (UA) Urine Ketones Urine Blood Urine Nitrite Urine Bilirubin Urine Urobilinogen Ur Leukocyte Esterase RPR Titer HIV 1&2 Antibody Screen Negative HIV P24 Antigen Negative 12/12/17 12/12/17 07:30 20:30 WBC RBC Hgb Hct MCV MCH MCHC RDW Plt Count MPV Sodium Potassium Chloride Carbon Dioxide Anion Gap BUN Creatinine Creat Clearance w eGFR Random Glucose Calcium Total Bilirubin AST ALT Alkaline Phosphatase Total Protein Albumin Urine Color Straw Urine Appearance Clear Urine pH 6.0 Ur Specific [place] 1.009 Urine Protein Negative Urine Glucose (UA) Negative Urine Ketones Negative Urine Blood Negative Urine Nitrite Negative Urine Bilirubin Negative Urine Urobilinogen Negative Ur Leukocyte Esterase Negative RPR Titer Nonreactive HIV 1&2 Antibody Screen HIV P24 Antigen LABS NOTED. - Treatment Hospital Course: Detox Protocol Followed, Detoxed Safely, Responded well, Discharged Condition Good Patient has Accepted a Rehab Referral to: PATIENT ADVISED TO CONSIDER LOCAL 12- STEP/NA/AA OUTPATIENT SUPPORT GROUPS. - Medication Discharge Medications: Ambulatory Orders levETIRAcetam [Keppra -] 500 mg PO BID #60 tablet 11/05/17 - Diagnosis (1) Alcohol dependence with uncomplicated withdrawal Status: Acute (2) Cannabis dependence, uncomplicated Status: Acute (3) Genital warts Status: Chronic (4) History of seizure Status: Chronic (5) Murmur, cardiac Status: Chronic (6) Substance induced mood disorder Status: Suspected - AMA Did Patient Leave Against Medical Advice: No
== END 2017-12-15 09:10 | disposition home or self-care (01) | DRG 775 ==
LOC: YASAS 13:15 → Y3N 18:09
PROVIDERS: ADMIT Surgery; ATTEND Surgery
PROC: HZ2ZZZZ Detoxification Services for Substance Abuse Treatment (ICD-10-PCS; principal; 2017-12-11)
DX: F10.230 Alcohol dependence with withdrawal, uncomplicated (principal); F12.20 Cannabis dependence, uncomplicated; F19.24 Other psychoactive substance dependence with psychoactive substance-induced mood disorder; R01.1 Cardiac murmur, unspecified; A63.0 Anogenital (venereal) warts; Z86.69 Personal history of other diseases of the nervous system and sense organs
CPT/HCPCS: 36415; 80053; 81003; 85027; 86593; 87389; 93005; 93010

== ENCOUNTER 2019-03-25 11:11 | Inpatient (IN) | payer OTHER ==
[2019-03-25 11:52] VITALS: BMI 19.8
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
[2019-03-25] MEDS ORDERED: BISMUTH SUBSALICYLATE 524 MG/30 ML UD PO PRN (13:24)
[2019-03-25] MEDS ORDERED: MENTHOL/PHENOL 1 EACH UD MM PRN (13:24)
[2019-03-25] MEDS ORDERED: MAGNESIUM HYDROX 2400MG/30ML ORAL SUSPENSION 30 ML CUP PO PRN (13:24)
[2019-03-25] MEDS ORDERED: chlordiazePOXIDE HCL 25 MG CAPSULE PO PRN (13:24)
[2019-03-25] MEDS ORDERED: MAGNESIUM CITRATE 300 ML BOTTLE PO PRN (13:24)
[2019-03-25] MEDS ORDERED: ACETAMINOPHEN 325 MG TABLET (FP) PO PRN ×2 (13:24)
[2019-03-25] MEDS ORDERED: IBUPROFEN 400 MG TABLET (FP) PO PRN (13:24)
[2019-03-25] MEDS ORDERED: MAG HYDROX/AL HYDROX/SIMETH 30 ML UNIT-DOSE CUP PO PRN (13:24)
[2019-03-25] MEDS ORDERED: METHOCARBAMOL 500 MG TABLET PO PRN (13:24)
[2019-03-25] MEDS ORDERED: chlordiazePOXIDE HCL 25 MG CAPSULE PO ONE (13:24)
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
--- NOTE | 2019-03-25 14:36 | EKG ---
Test Reason : Blood Pressure : / mmHG Vent. Rate : 074 BPM Atrial Rate : 074 BPM P-R Int : 158 ms QRS Dur : 098 ms QT Int : 388 ms P-R-T Axes : 069 050 032 degrees QTc Int : 430 ms NORMAL SINUS RHYTHM LEFT ATRIAL ENLARGEMENT LEFT VENTRICULAR HYPERTROPHY NONSPECIFIC ST AND T WAVE ABNORMALITY ABNORMAL ECG Confirmed by MD KHOA, JAXON ([id number]) on 03/25/2019 2:35:50 PM Referred By: LINDSEY Confirmed By:JAXON COUCH MD
[2019-03-25] MEDS: chlordiazePOXIDE HCL 25 MG CAPSULE PO SCH ×2 (17:50→22:33)
[2019-03-25] MEDS: levETIRAcetam 500 MG TABLET (FP) PO SCH (22:33)
[2019-03-25] MEDS: THIAMINE HCL 100 MG TABLET (FP) PO SCH (22:33)
[2019-03-25] MEDS: MELATONIN 5 MG TABLETS PO PRN (22:33)
[2019-03-26] MEDS: chlordiazePOXIDE HCL 25 MG CAPSULE PO SCH ×4 (07:01→22:20)
--- NOTE | 2019-03-26 09:19 | CONSULT ---
[facility] Psychiatric Consult - Data Date of interview: 03/26/19 Psychiatric History: Patient approached at bedside. Told loan underwriter:"I don't need to see psychiatrist
[2019-03-26 09:50] LABS: HEMATOCRIT 45.1 % (35.4-49); MCH 32.2 pg (25.7-33.7); MCHC 33.2 g/dl (32.0-35.9); MEAN CELL VOLUME 96.8 fl (80-96); MEAN PLT VOLUME 9.1 fl (7.5-11.1); PLATELET COUNT 139 K/MM3 (134-434); RBC 4.67 M/mm3 (4.00-5.60); RDW 15.3 % (11.9-15.9); WHITE BLOOD COUNT 2.7 K/mm3 (4.0-10.0)
[2019-03-26 10:05] LABS: ALBUMIN 3.8 g/dl (3.4-5.0); BILIRUBIN,TOTAL 0.6 mg/dL (0.2-1); BLOOD UREA NITROGEN 9.4 mg/dL (7-18); CALCIUM 9.5 mg/dL (8.5-10.1); CREATININE 0.7 mg/dL (0.55-1.3); POTASSIUM 3.4 mmol/L (3.5-5.1); TOT PROT 7.1 g/dl (6.4-8.2)
[2019-03-26] MEDS: PRENATAL VITAMINS W/ FOLIC ACID TABLET (FP) PO SCH (10:09)
[2019-03-26] MEDS: levETIRAcetam 500 MG TABLET (FP) PO SCH ×2 (10:09→22:20)
[2019-03-26] MEDS ORDERED: POTASSIUM CHLORIDE TABS 20 MEQ TABLET.ER (FP) PO ONE (10:57)
--- NOTE | 2019-03-26 10:57 | PN ---
[facility] CIWA - CIWA Score Nausea/Vomitin-Mild Nausea/No Vomiting Muscle Tremors: 2 Anxiety: 3 Agitation: 2 Paroxysmal Sweats: No Perspiration Orientation: 0-Oriented Tacttile Disturbances: 1-Very Mild Itch/Numbness Auditory Disturbances: 0-None Visual Disturbances: 0-None Headache: 2-Mild CIWA-Ar Total Score: 11 S Progress Note (SOAP) Subjective: alert,irritable,anxious,interrupted sleep,tremor,pain in the body and back Objective: 03/26/19 10:52 Vital Signs Temperature 97.6 F 03/26/19 09:32 Pulse Rate 64 03/26/19 09:32 Respiratory Rate 18 03/26/19 09:32 Blood Pressure 137/89 03/26/19 09:32 O2 Sat by Pulse Oximetry (%) Laboratory Last Values WBC 2.7 K/mm3 (4.0-10.0) L 03/26/19 07:10 RBC 4.67 M/mm3 (4.00-5.60) 03/26/19 07:10 Hgb 15.0 GM/dL (11.7-16.9) 03/26/19 07:10 Hct 45.1 % (35.4-49) 03/26/19 07:10 MCV 96.8 fl (80-96) H 03/26/19 07:10 MCH 32.2 pg (25.7-33.7) 03/26/19 07:10 MCHC 33.2 g/dl (32.0-35.9) 03/26/19 07:10 RDW 15.3 % (11.9-15.9) D 03/26/19 07:10 Plt Count 139 K/MM3 (134-434) D 03/26/19 07:10 MPV 9.1 fl (7.5-11.1) 03/26/19 07:10 Sodium 139 mmol/L (136-145) 03/26/19 07:10 Potassium 3.4 mmol/L (3.5-5.1) L 03/26/19 07:10 Chloride 102 mmol/L (98-107) 03/26/19 07:10 Carbon Dioxide 31 mmol/L (21-32) 03/26/19 07:10 Anion Gap 6 MMOL/L (8-16) L 03/26/19 07:10 BUN 9.4 mg/dL (7-18) 03/26/19 07:10 Creatinine 0.7 mg/dL (0.55-1.3) 03/26/19 07:10 Est GFR (CKD-EPI)AfAm 147.81 03/26/19 07:10 Est GFR (CKD-EPI)NonAf 127.53 03/26/19 07:10 Random Glucose 89 mg/dL (74-106) 03/26/19 07:10 Calcium 9.5 mg/dL (8.5-10.1) 03/26/19 07:10 Total Bilirubin 0.6 mg/dL (0.2-1) 03/26/19 07:10 AST 70 U/L (15-37) H 03/26/19 07:10 ALT 27 U/L (13-61) 03/26/19 07:10 Alkaline Phosphatase 58 U/L (45-117) 03/26/19 07:10 Total Protein 7.1 g/dl (6.4-8.2) 03/26/19 07:10 Albumin 3.8 g/dl (3.4-5.0) 03/26/19 07:10 03/26/19 10:53 rpr pending,hiv pending Assessment: 03/26/19 10:54 withdrawal symptom,k dure 20 meq po dialy for hypokalemia k is 3.4,wbc is 2,700, probably due to alcohol dependence,will repeat cbc,k in am
[2019-03-26] MEDS ORDERED: FLU VACCINE QUAD 60 MCG/0.5 ML (MDV 19-20) IM ONE (12:00)
[2019-03-26] MEDS: THIAMINE HCL 100 MG TABLET (FP) PO SCH (22:20)
[2019-03-26] MEDS: MELATONIN 5 MG TABLETS PO PRN (22:20)
[2019-03-26] MEDS: hydrOXYzine PAMOATE 25 MG CAPSULE (FP) PO PRN (22:23)
[2019-03-27] MEDS: chlordiazePOXIDE HCL 25 MG CAPSULE PO SCH ×4 (07:12→22:15)
[2019-03-27] MEDS: levETIRAcetam 500 MG TABLET (FP) PO SCH ×2 (10:21→22:15)
[2019-03-27] MEDS: POTASSIUM CHLORIDE TABS 20 MEQ TABLET.ER (FP) PO SCH (10:21)
[2019-03-27] MEDS: PRENATAL VITAMINS W/ FOLIC ACID TABLET (FP) PO SCH (10:21)
--- NOTE | 2019-03-27 10:51 | PN ---
S CIWA - CIWA Score Nausea/Vomitin-Mild Nausea/No Vomiting Muscle Tremors: 1-None Visible, but [place] Anxiety: 1-Mildly Anxious Agitation: 1-Slight > Activity Paroxysmal Sweats: No Perspiration Orientation: 0-Oriented Tacttile Disturbances: 1-Very Mild Itch/Numbness Auditory Disturbances: 0-None Visual Disturbances: 0-None Headache: 2-Mild CIWA-Ar Total Score: 7 BHS Progress Note (SOAP) Subjective: alert,irritable,anxious,interrupted sleep,poor appetite Objective: 03/27/19 10:53 Vital Signs Temperature 97.9 F 03/27/19 09:45 Pulse Rate 55 L 03/27/19 09:45 Respiratory Rate 18 03/27/19 09:45 Blood Pressure 136/80 03/27/19 09:45 O2 Sat by Pulse Oximetry (%) Assessment: 03/27/19 10:59 withdrawal symptom Plan: repeat cbc,k pending
--- NOTE | 2019-03-27 11:07 | PN ---
S Progress Note Note: patient refused blood for cbc and k today,agree to have it done tomorrow
[2019-03-27 14:44] LABS: BASO % 0.7 % (0-2.0); EOS % 3.2 % (0-4.5); HEMOGLOBIN 15.8 GM/dL (11.7-16.9); LYMPH % 49.8 % (8-40); MCH 31.4 pg (25.7-33.7); MCHC 32.8 g/dl (32.0-35.9); MEAN CELL VOLUME 95.7 fl (80-96); MEAN PLT VOLUME 9.6 fl (7.5-11.1); MONO % 12.8 % (3.8-10.2); NEUT % 33.5 % (42.8-82.8); PLATELET COUNT 170 K/MM3 (134-434); RBC 5.01 M/mm3 (4.00-5.60); RDW 15.6 % (11.9-15.9); WHITE BLOOD COUNT 3.2 K/mm3 (4.0-10.0)
[2019-03-27] MEDS: hydrOXYzine PAMOATE 25 MG CAPSULE (FP) PO PRN (18:22)
[2019-03-27] MEDS: THIAMINE HCL 100 MG TABLET (FP) PO SCH (22:15)
[2019-03-27] MEDS: MELATONIN 5 MG TABLETS PO PRN (22:15)
[2019-03-28] MEDS ORDERED: chlordiazePOXIDE HCL 10 MG CAPSULE PO PRN
[2019-03-28] MEDS: chlordiazePOXIDE HCL 10 MG CAPSULE PO SCH ×4 (06:23→22:05)
[2019-03-28] MEDS: PRENATAL VITAMINS W/ FOLIC ACID TABLET (FP) PO SCH (10:29)
[2019-03-28] MEDS: levETIRAcetam 500 MG TABLET (FP) PO SCH ×2 (10:29→22:05)
[2019-03-28] MEDS: POTASSIUM CHLORIDE TABS 20 MEQ TABLET.ER (FP) PO SCH (10:29)
--- NOTE | 2019-03-28 12:36 | PN ---
S CIWA - CIWA Score Nausea/Vomitin-Mild Nausea/No Vomiting Muscle Tremors: 1-None Visible, but [place] Anxiety: 1-Mildly Anxious Agitation: 1-Slight > Activity Paroxysmal Sweats: 2 Orientation: 0-Oriented Tacttile Disturbances: 1-Very Mild Itch/Numbness Auditory Disturbances: 0-None Visual Disturbances: 0-None Headache: 0-None Present CIWA-Ar Total Score: 7 BHS Progress Note (SOAP) Subjective: INTERRUPTED SLEEP, MILD SWEATS Vital Signs Temperature 97.3 F L 03/28/19 09:32 Pulse Rate 72 03/28/19 09:32 Respiratory Rate 16 03/28/19 09:32 Blood Pressure 122/78 03/28/19 09:32 O2 Sat by Pulse Oximetry (%) Laboratory Tests 03/26/19 03/26/19 03/26/19 07:10 07:10 07:10 WBC 2.7 L RBC 4.67 Hgb 15.0 Hct 45.1 MCV 96.8 H MCH 32.2 MCHC 33.2 RDW 15.3 D Plt Count 139 D MPV 9.1 Absolute Neuts (auto) Neutrophils % Lymphocytes % Monocytes % Eosinophils % Basophils % Nucleated RBC % Sodium 139 Potassium 3.4 L Chloride 102 Carbon Dioxide 31 Anion Gap 6 L BUN 9.4 Creatinine 0.7 Est GFR (CKD-EPI)AfAm 147.81 Est GFR (CKD-EPI)NonAf 127.53 Random Glucose 89 Calcium 9.5 Total Bilirubin 0.6 AST 70 H ALT 27 Alkaline Phosphatase 58 Total Protein 7.1 Albumin 3.8 RPR Titer Nonreactive HIV 1&2 Antibody Screen HIV P24 Antigen 03/26/19 03/27/19 03/27/19 07:10 11:33 11:33 WBC 3.2 L RBC 5.01 Hgb 15.8 Hct 48.0 MCV 95.7 MCH 31.4 MCHC 32.8 RDW 15.6 Plt Count 170 D MPV 9.6 Absolute Neuts (auto) 1.1 L Neutrophils % 33.5 L D Lymphocytes % 49.8 H D Monocytes % 12.8 H Eosinophils % 3.2 Basophils % 0.7 Nucleated RBC % 0 Sodium Potassium 4.5 Chloride Carbon Dioxide Anion Gap BUN Creatinine Est GFR (CKD-EPI)AfAm Est GFR (CKD-EPI)NonAf Random Glucose Calcium Total Bilirubin AST ALT Alkaline Phosphatase Total Protein Albumin RPR Titer HIV 1&2 Antibody Screen Negative HIV P24 Antigen Negative PT AOX3 IN NAD AMBULATING Objective: 03/28/19 12:34 Vital Signs Temperature 97.3 F L 03/28/19 09:32 Pulse Rate 72 03/28/19 09:32 Respiratory Rate 16 03/28/19 09:32 Blood Pressure 122/78 03/28/19 09:32 O2 Sat by Pulse Oximetry (%) Laboratory Tests 03/26/19 03/26/19 03/26/19 07:10 07:10 07:10 WBC 2.7 L RBC 4.67 Hgb 15.0 Hct 45.1 MCV 96.8 H MCH 32.2 MCHC 33.2 RDW 15.3 D Plt Count 139 D MPV 9.1 Absolute Neuts (auto) Neutrophils % Lymphocytes % Monocytes % Eosinophils % Basophils % Nucleated RBC % Sodium 139 Potassium 3.4 L Chloride 102 Carbon Dioxide 31 Anion Gap 6 L BUN 9.4 Creatinine 0.7 Est GFR (CKD-EPI)AfAm 147.81 Est GFR (CKD-EPI)NonAf 127.53 Random Glucose 89 Calcium 9.5 Total Bilirubin 0.6 AST 70 H ALT 27 Alkaline Phosphatase 58 Total Protein 7.1 Albumin 3.8 RPR Titer Nonreactive HIV 1&2 Antibody Screen HIV P24 Antigen 03/26/19 03/27/19 03/27/19 07:10 11:33 11:33 WBC 3.2 L RBC 5.01 Hgb 15.8 Hct 48.0 MCV 95.7 MCH 31.4 MCHC 32.8 RDW 15.6 Plt Count 170 D MPV 9.6 Absolute Neuts (auto) 1.1 L Neutrophils % 33.5 L D Lymphocytes % 49.8 H D Monocytes % 12.8 H Eosinophils % 3.2 Basophils % 0.7 Nucleated RBC % 0 Sodium Potassium 4.5 Chloride Carbon Dioxide Anion Gap BUN Creatinine Est GFR (CKD-EPI)AfAm Est GFR (CKD-EPI)NonAf Random Glucose Calcium Total Bilirubin AST ALT Alkaline Phosphatase Total Protein Albumin RPR Titer HIV 1&2 Antibody Screen Negative HIV P24 Antigen Negative PT AOX3 IN NAD AMBULATING Assessment: 03/28/19 12:35 WITHDRAWAL SX'S K CORRECTED 03/28/19 12:35 Plan: CONT . DETOX INCREASE FLUIDS
[2019-03-28] MEDS: THIAMINE HCL 100 MG TABLET (FP) PO SCH (22:05)
[2019-03-28] MEDS: MELATONIN 5 MG TABLETS PO PRN (22:06)
[2019-03-29] MEDS: chlordiazePOXIDE HCL 10 MG CAPSULE PO SCH ×2 (07:09→17:21)
[2019-03-29] MEDS: PRENATAL VITAMINS W/ FOLIC ACID TABLET (FP) PO SCH (09:21)
[2019-03-29] MEDS: levETIRAcetam 500 MG TABLET (FP) PO SCH ×2 (09:21→22:14)
[2019-03-29] MEDS: POTASSIUM CHLORIDE TABS 20 MEQ TABLET.ER (FP) PO SCH (09:21)
--- NOTE | 2019-03-29 13:17 | PN ---
S CIWA - CIWA Score Nausea/Vomitin-No Nausea/No Vomiting Muscle Tremors: None Anxiety: 0-No Anxiety, at Ease Agitation: 2 Paroxysmal Sweats: No Perspiration Orientation: 0-Oriented Tacttile Disturbances: 0-None Auditory Disturbances: 0-None Visual Disturbances: 0-None Headache: 0-None Present CIWA-Ar Total Score: 2 BHS Progress Note (SOAP) Subjective: Patient denies current Withdrawal / Detox symptoms and reports that he feels well overall at this time. Objective: PATIENT A & O X 3, OBSERVED AMBULATING ON DETOX UNIT UNASSISTED. IN NO ACUTE DISTRESS. 03/29/19 13:16 Vital Signs Temperature 97.8 F 03/29/19 10:00 Pulse Rate 80 03/29/19 10:00 Respiratory Rate 18 03/29/19 10:00 Blood Pressure 126/83 03/29/19 10:00 O2 Sat by Pulse Oximetry (%) Laboratory Last Values WBC 3.2 K/mm3 (4.0-10.0) L 03/27/19 11:33 RBC 5.01 M/mm3 (4.00-5.60) 03/27/19 11:33 Hgb 15.8 GM/dL (11.7-16.9) 03/27/19 11:33 Hct 48.0 % (35.4-49) 03/27/19 11:33 MCV 95.7 fl (80-96) 03/27/19 11:33 MCH 31.4 pg (25.7-33.7) 03/27/19 11:33 MCHC 32.8 g/dl (32.0-35.9) 03/27/19 11:33 RDW 15.6 % (11.9-15.9) 03/27/19 11:33 Plt Count 170 K/MM3 (134-434) D 03/27/19 11:33 MPV 9.6 fl (7.5-11.1) 03/27/19 11:33 Absolute Neuts (auto) 1.1 K/mm3 (1.5-8.0) L 03/27/19 11:33 Neutrophils % 33.5 % (42.8-82.8) L D 03/27/19 11:33 Lymphocytes % 49.8 % (8-40) H D 03/27/19 11:33 Monocytes % 12.8 % (3.8-10.2) H 03/27/19 11:33 Eosinophils % 3.2 % (0-4.5) 03/27/19 11:33 Basophils % 0.7 % (0-2.0) 03/27/19 11:33 Nucleated RBC % 0 % (0-0) 03/27/19 11:33 Sodium 139 mmol/L (136-145) 03/26/19 07:10 Potassium 4.5 mmol/L (3.5-5.1) 03/27/19 11:33 Chloride 102 mmol/L (98-107) 03/26/19 07:10 Carbon Dioxide 31 mmol/L (21-32) 03/26/19 07:10 Anion Gap 6 MMOL/L (8-16) L 03/26/19 07:10 BUN 9.4 mg/dL (7-18) 03/26/19 07:10 Creatinine 0.7 mg/dL (0.55-1.3) 03/26/19 07:10 Est GFR (CKD-EPI)AfAm 147.81 03/26/19 07:10 Est GFR (CKD-EPI)NonAf 127.53 03/26/19 07:10 Random Glucose 89 mg/dL (74-106) 03/26/19 07:10 Calcium 9.5 mg/dL (8.5-10.1) 03/26/19 07:10 Total Bilirubin 0.6 mg/dL (0.2-1) 03/26/19 07:10 AST 70 U/L (15-37) H 03/26/19 07:10 ALT 27 U/L (13-61) 03/26/19 07:10 Alkaline Phosphatase 58 U/L (45-117) 03/26/19 07:10 Total Protein 7.1 g/dl (6.4-8.2) 03/26/19 07:10 Albumin 3.8 g/dl (3.4-5.0) 03/26/19 07:10 RPR Titer Nonreactive (NONREACTIVE) 03/26/19 07:10 HIV 1&2 Antibody Screen Negative 03/26/19 07:10 HIV P24 Antigen Negative 03/26/19 07:10 LABS NOTED. Assessment: 03/29/19 13:16 WITHDRAWAL SYMPTOMS. Plan: CONTINUE DETOX. PATIENT SCHEDULED FOR D/C FROM DETOX UNIT TOMORROW.
[2019-03-29 21:16] VITALS: BP 133/75; PULSE 72; TEMP 98.1
[2019-03-29] MEDS: MELATONIN 5 MG TABLETS PO PRN (22:14)
[2019-03-29] MEDS: THIAMINE HCL 100 MG TABLET (FP) PO SCH (22:14)
[2019-03-30] MEDS ORDERED: chlordiazePOXIDE HCL 10 MG CAPSULE PO ONE (05:00)
--- NOTE | 2019-03-30 17:29 | DS ---
[facility] Detox Discharge Summary Admission Date: 03/25/19 Discharge Date: 03/30/19 - History Present History: Alcohol Dependence, Cannabis Dependence Additional Comments: Patient completed detox successfully and discharged safely. Instructed to follow up with PCP within 1-2 weeks post discharge. Pertinent Past History: HTN Alcohol related seizure disorder Alcohol dependence Cannabis dependence Cocaine use disorder Innocent heart murmur since - Physical Exam Results Vital Signs: Vital Signs Temperature 98.1 F 03/29/19 21:15 Pulse Rate 72 03/29/19 21:15 Respiratory Rate 18 03/30/19 03:30 Blood Pressure 133/75 03/29/19 21:15 O2 Sat by Pulse Oximetry (%) Pertinent Admission Physical Exam Findings: Withdrawal sxs Laboratory Tests 03/26/19 03/26/19 03/26/19 07:10 07:10 07:10 WBC 2.7 L RBC 4.67 Hgb 15.0 Hct 45.1 MCV 96.8 H MCH 32.2 MCHC 33.2 RDW 15.3 D Plt Count 139 D MPV 9.1 Absolute Neuts (auto) Neutrophils % Lymphocytes % Monocytes % Eosinophils % Basophils % Nucleated RBC % Sodium 139 Potassium 3.4 L Chloride 102 Carbon Dioxide 31 Anion Gap 6 L BUN 9.4 Creatinine 0.7 Est GFR (CKD-EPI)AfAm 147.81 Est GFR (CKD-EPI)NonAf 127.53 Random Glucose 89 Calcium 9.5 Total Bilirubin 0.6 AST 70 H ALT 27 Alkaline Phosphatase 58 Total Protein 7.1 Albumin 3.8 RPR Titer Nonreactive HIV 1&2 Antibody Screen HIV P24 Antigen 03/26/19 03/27/19 03/27/19 07:10 11:33 11:33 WBC 3.2 L RBC 5.01 Hgb 15.8 Hct 48.0 MCV 95.7 MCH 31.4 MCHC 32.8 RDW 15.6 Plt Count 170 D MPV 9.6 Absolute Neuts (auto) 1.1 L Neutrophils % 33.5 L D Lymphocytes % 49.8 H D Monocytes % 12.8 H Eosinophils % 3.2 Basophils % 0.7 Nucleated RBC % 0 Sodium Potassium 4.5 Chloride Carbon Dioxide Anion Gap BUN Creatinine Est GFR (CKD-EPI)AfAm Est GFR (CKD-EPI)NonAf Random Glucose Calcium Total Bilirubin AST ALT Alkaline Phosphatase Total Protein Albumin RPR Titer HIV 1&2 Antibody Screen Negative HIV P24 Antigen Negative Labs reviewed - Treatment Hospital Course: Detox Protocol Followed, Detoxed Safely, Responded well, Discharged Condition Good - Medication Discharge Medications: Ambulatory Orders levETIRAcetam [Keppra -] 500 mg PO BID #60 tablet 11/05/17 - Diagnosis (1) HTN (hypertension), benign Status: Chronic (2) Cocaine use disorder Status: Chronic (3) Schizophrenia Status: Chronic (4) Bipolar disorder Status: Chronic (5) Alcohol related seizure Status: Chronic (6) Alcohol dependence with uncomplicated withdrawal Status: Chronic (7) Cannabis dependence, uncomplicated Status: Chronic (8) Murmur, cardiac Status: Chronic - AMA Did Patient Leave Against Medical Advice: No (Instructed to follow up with PCP within 1-2 weeks)
== END 2019-03-30 09:30 | disposition home or self-care (01) | DRG 774 ==
LOC: YASAS 11:11 → Y6N 13:42
PROVIDERS: ADMIT Allergy & Immunology; ATTEND Allergy & Immunology
PROC: HZ2ZZZZ Detoxification Services for Substance Abuse Treatment (ICD-10-PCS; principal; 2019-03-25)
DX: F10.230 Alcohol dependence with withdrawal, uncomplicated (principal); F10.220 Alcohol dependence with intoxication, uncomplicated; F14.20 Cocaine dependence, uncomplicated; F12.20 Cannabis dependence, uncomplicated; F20.9 Schizophrenia, unspecified; F31.9 Bipolar disorder, unspecified; I10 Essential (primary) hypertension; R01.1 Cardiac murmur, unspecified; E87.6 Hypokalemia; G40.909 Epilepsy, unspecified, not intractable, without status epilepticus; Z87.891 Personal history of nicotine dependence
CPT/HCPCS: 36415; 80053; 84132; 85025; 85027; 86593; 87389; 93005; 93010

== ENCOUNTER 2019-12-29 12:51 | Inpatient (IN) | payer OTHER ==
--- NOTE | 2019-12-29 13:54 | BHS.RME ---
Substance Use & Tx History - Substance Use History Alcohol Substance amount: 7-8 bottles vodka Frequency of use: Daily Substance route: Oral Date of Last Use: 12/29/19 Marijuana/Hashish Substance amount: 1 ounce Frequency of use: Daily Substance route: Smoking Date of Last Use: 12/29/19 Physical/Psych/Mental Status - Behavior General Behavior: Increased activity (restlessness, agitation) Eye Contact: Normal - Cooperativeness Cooperativeness: Cooperative - Thinking Thought Processes: Tight, Logical, Goal Directed - Physical Health Problems Is patient presently having any pain?: No Does patient presently have any injuries (include location): No Does patient currently have a fever: No Is patient : No CIWA Nausea/Vomitin-Mild Nausea/No Vomiting Muscle Tremors: 3 Anxiety: 3 Agitation: 3 Paroxysmal Sweats: 1-Minimal Palms Moist Orientation: 0-Oriented Tacttile Disturbances: 0-None Auditory Disturbances: 0-None Visual Disturbances: 0-None Headache: 0-None Present (still intoxicated not yet in full withdrawals.) CIWA-Ar Total Score: 11
[2019-12-29 14:40] VITALS: BMI 19.5
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
[2019-12-29] MEDS ORDERED: ACETAMINOPHEN 325 MG TABLET (FP) PO PRN ×2 (15:54)
[2019-12-29] MEDS ORDERED: MENTHOL/PHENOL 1 EACH UD MM PRN (15:54)
[2019-12-29] MEDS ORDERED: MAG HYDROX/AL HYDROX/SIMETH 30 ML UNIT-DOSE CUP PO PRN (15:54)
[2019-12-29] MEDS ORDERED: BISMUTH SUBSALICYLATE 524 MG/30 ML UD PO PRN (15:54)
[2019-12-29] MEDS ORDERED: chlordiazePOXIDE HCL 25 MG CAPSULE PO PRN (15:54)
[2019-12-29] MEDS ORDERED: IBUPROFEN 400 MG TABLET (FP) PO PRN (15:54)
[2019-12-29] MEDS ORDERED: METHOCARBAMOL 500 MG TABLET PO PRN (15:54)
[2019-12-29] MEDS ORDERED: ONDANSETRON *ODT* 4 MG TABLET SL ONE (15:54)
[2019-12-29] MEDS ORDERED: MAGNESIUM CITRATE 300 ML BOTTLE PO PRN (15:54)
[2019-12-29] MEDS ORDERED: MAGNESIUM HYDROX 2400MG/30ML ORAL SUSPENSION 30 ML CUP PO PRN (15:54)
[2019-12-29] MEDS ORDERED: ONDANSETRON *ODT* 4 MG TABLET SL PRN (15:54)
--- NOTE | 2019-12-29 16:07 | PN ---
Teaching Attending Note Name of Resident: Cely Vega ATTENDING PHYSICIAN STATEMENT I saw and evaluated the patient. I reviewed the resident's note and discussed the case with the resident. I agree with the resident's findings and plan as documented. SUBJECTIVE:29 years old male with alcohol,cocaine and cannabis dependence,seeking detox,last detox 1 year ago,history of seizure OBJECTIVE: Vital Signs Temperature 98.1 F 12/29/19 14:31 Pulse Rate 110 H 12/29/19 14:31 Respiratory Rate 19 12/29/19 14:31 Blood Pressure 141/91 12/29/19 14:31 O2 Sat by Pulse Oximetry (%) ASSESSMENT AND PLAN:patient need inpatient detox ,medical managed,librium regimen,seizure precaution
[2019-12-29] MEDS: chlordiazePOXIDE HCL 25 MG CAPSULE PO SCH ×2 (17:21→22:20)
[2019-12-29] MEDS: hydrOXYzine PAMOATE 25 MG CAPSULE (FP) PO SCH ×2 (17:21→22:20)
[2019-12-29] MEDS: THIAMINE HCL 100 MG TABLET (FP) PO SCH (22:20)
[2019-12-29] MEDS: MELATONIN 5 MG TABLETS PO SCH (23:05)
[2019-12-30] MEDS: hydrOXYzine PAMOATE 25 MG CAPSULE (FP) PO SCH (06:17)
[2019-12-30] MEDS: chlordiazePOXIDE HCL 25 MG CAPSULE PO SCH ×4 (06:17→23:16)
[2019-12-30] MEDS ORDERED: hydrOXYzine PAMOATE 25 MG CAPSULE (FP) PO PRN (09:46)
[2019-12-30] MEDS: levETIRAcetam 500 MG TABLET (FP) PO SCH (10:10)
[2019-12-30] MEDS: PRENATAL VITAMINS W/ FOLIC ACID TABLET (FP) PO SCH (10:10)
--- NOTE | 2019-12-30 11:10 | PN ---
[facility] CIWA - CIWA Score Nausea/Vomitin-Mild Nausea/No Vomiting Muscle Tremors: 2 Anxiety: 2 Agitation: 2 Paroxysmal Sweats: No Perspiration Orientation: 0-Oriented Tacttile Disturbances: 1-Very Mild Itch/Numbness Auditory Disturbances: 0-None Visual Disturbances: 0-None Headache: 2-Mild CIWA-Ar Total Score: 10 [facility] Progress Note (SOAP) Subjective: alert,irritable anxious,interrupted sleep,tremor,pain in the body and back Objective: 12/30/19 11:08 Vital Signs Temperature 97.9 F 12/30/19 08:45 Pulse Rate 84 12/30/19 08:45 Respiratory Rate 19 12/30/19 08:45 Blood Pressure 136/82 12/30/19 08:45 O2 Sat by Pulse Oximetry (%) 96 12/30/19 08:45 labs pending Assessment: 12/30/19 11:08 withdrawal symptom Plan: continue detox librium regimen,seizure precaution,continue keppra 500 mgs po bid
[2019-12-30 13:05] LABS: HEMATOCRIT 37.4 % (35.4-49); HEMOGLOBIN 12.5 GM/dL (11.7-16.9); MCH 34.6 pg (25.7-33.7); MCHC 33.5 g/dl (32.0-35.9); MEAN CELL VOLUME 103.2 fl (80-96); PLATELET COUNT 222 K/MM3 (134-434); RBC 3.62 M/mm3 (4.00-5.60); RDW 14.9 % (11.9-15.9); WHITE BLOOD COUNT 3.9 K/mm3 (4.0-10.0)
[2019-12-30 13:12] LABS: ALBUMIN 3.5 g/dl (3.4-5.0); CALCIUM 9.6 mg/dL (8.5-10.1); POTASSIUM 4.4 mmol/L (3.5-5.1)
[2019-12-30 13:16] LABS: BILIRUBIN,TOTAL 0.2 mg/dL (0.2-1); CREATININE 0.7 mg/dL (0.55-1.3); TOT PROT 7.2 g/dl (6.4-8.2)
[2019-12-30] MEDS: MELATONIN 5 MG TABLETS PO SCH (23:16)
[2019-12-30] MEDS: THIAMINE HCL 100 MG TABLET (FP) PO SCH (23:16)
[2019-12-31] MEDS: chlordiazePOXIDE HCL 25 MG CAPSULE PO SCH ×4 (05:08→22:02)
[2019-12-31] MEDS: levETIRAcetam 500 MG TABLET (FP) PO SCH (10:05)
[2019-12-31] MEDS: PRENATAL VITAMINS W/ FOLIC ACID TABLET (FP) PO SCH (10:05)
--- NOTE | 2019-12-31 11:28 | PN ---
[facility] CIWA - CIWA Score Nausea/Vomitin-Mild Nausea/No Vomiting Muscle Tremors: 2 Anxiety: 2 Agitation: 2 Paroxysmal Sweats: No Perspiration Orientation: 0-Oriented Tacttile Disturbances: 1-Very Mild Itch/Numbness Auditory Disturbances: 0-None Visual Disturbances: 0-None Headache: 1-Very Mild CIWA-Ar Total Score: 9 S Progress Note (SOAP) Subjective: alert,irritable,anxious interrupted sleep,tremor,aching pain body and back Objective: 12/31/19 11:28 Vital Signs Temperature 97.5 F L 12/31/19 09:25 Pulse Rate 79 12/31/19 09:25 Respiratory Rate 18 12/31/19 09:25 Blood Pressure 141/86 12/31/19 09:25 O2 Sat by Pulse Oximetry (%) 100 12/31/19 06:13 12/31/19 11:28 Laboratory Last Values WBC 3.9 K/mm3 (4.0-10.0) L 12/30/19 08:30 RBC 3.62 M/mm3 (4.00-5.60) L 12/30/19 08:30 Hgb 12.5 GM/dL (11.7-16.9) 12/30/19 08:30 Hct 37.4 % (35.4-49) D 12/30/19 08:30 MCV 103.2 fl (80-96) H 12/30/19 08:30 MCH 34.6 pg (25.7-33.7) H D 12/30/19 08:30 MCHC 33.5 g/dl (32.0-35.9) 12/30/19 08:30 RDW 14.9 % (11.9-15.9) 12/30/19 08:30 Plt Count 222 K/MM3 (134-434) D 12/30/19 08:30 MPV 8.0 fl (7.5-11.1) D 12/30/19 08:30 Sodium 140 mmol/L (136-145) 12/30/19 08:30 Potassium 4.4 mmol/L (3.5-5.1) 12/30/19 08:30 Chloride 103 mmol/L (98-107) 12/30/19 08:30 Carbon Dioxide 29 mmol/L (21-32) 12/30/19 08:30 Anion Gap 9 MMOL/L (8-16) 12/30/19 08:30 BUN 14.0 mg/dL (7-18) 12/30/19 08:30 Creatinine 0.7 mg/dL (0.55-1.3) 12/30/19 08:30 Est GFR (CKD-EPI)AfAm 146.77 12/30/19 08:30 Est GFR (CKD-EPI)NonAf 126.64 12/30/19 08:30 Random Glucose 85 mg/dL (74-106) 12/30/19 08:30 Calcium 9.6 mg/dL (8.5-10.1) 12/30/19 08:30 Total Bilirubin 0.2 mg/dL (0.2-1) 12/30/19 08:30 AST 54 U/L (15-37) H 12/30/19 08:30 ALT 34 U/L (13-61) 12/30/19 08:30 Alkaline Phosphatase 82 U/L (45-117) 12/30/19 08:30 Total Protein 7.2 g/dl (6.4-8.2) 12/30/19 08:30 Albumin 3.5 g/dl (3.4-5.0) 12/30/19 08:30 Syphilis Serology Non-reactive (NONREACTIVE) 12/30/19 08:30 COVID-19 (RORY) Not detected (Not Detected) 12/29/19 14:57 HIV Ag/Ab Combo Qual Negative (NEGATIVE) 12/30/19 08:30 Assessment: 12/31/19 11:29 withdrawal symptom Plan: continue detox librium regimen,seizure precaution
[2019-12-31] MEDS: MELATONIN 5 MG TABLETS PO SCH (22:02)
[2019-12-31] MEDS: THIAMINE HCL 100 MG TABLET (FP) PO SCH (22:02)
[2020-01-01] MEDS ORDERED: chlordiazePOXIDE HCL 10 MG CAPSULE PO PRN
[2020-01-01] MEDS: chlordiazePOXIDE HCL 10 MG CAPSULE PO SCH ×2 (06:24→10:06)
[2020-01-01] MEDS: levETIRAcetam 500 MG TABLET (FP) PO SCH (10:05)
--- NOTE | 2020-01-01 10:05 | PN ---
[facility] CIWA - CIWA Score Nausea/Vomitin-No Nausea/No Vomiting Muscle Tremors: None Anxiety: 1-Mildly Anxious Agitation: 0-Normal Activity Paroxysmal Sweats: No Perspiration Orientation: 0-Oriented Tacttile Disturbances: 0-None Auditory Disturbances: 0-None Visual Disturbances: 0-None Headache: 0-None Present CIWA-Ar Total Score: 1 [facility] Progress Note (SOAP) Subjective: alert,no complaint Objective: 01/01/20 10:03 Vital Signs Temperature 97.3 F L 01/01/20 05:05 Pulse Rate 62 01/01/20 05:05 Respiratory Rate 20 01/01/20 05:05 Blood Pressure 124/78 01/01/20 05:05 O2 Sat by Pulse Oximetry (%) 100 01/01/20 05:05 Assessment: 01/01/20 10:03 no withdrawal symptom Plan: patient is stable for discharge today,follow up with after care program as arrangement
[2020-01-01] MEDS: PRENATAL VITAMINS W/ FOLIC ACID TABLET (FP) PO SCH (10:06)
--- NOTE | 2020-01-01 10:06 | DS ---
[facility] Detox Discharge Summary Admission Date: 12/29/19 Discharge Date: 01/01/20 - History Present History: Alcohol Dependence, Cannabis Dependence Additional Comments: alert,oriented x 3 ambulation on the unit lung clear on auscultation bilaterally no swelling on the legs patient is stable for discharge today no withdrawal symptom follow up with after care program [facility] as arrangement total time of discharge spending 35 minutes Pertinent Past History: seizure - Physical Exam Results Vital Signs: Vital Signs Temperature 97.3 F L 01/01/20 05:05 Pulse Rate 62 01/01/20 05:05 Respiratory Rate 20 01/01/20 05:05 Blood Pressure 124/78 01/01/20 05:05 O2 Sat by Pulse Oximetry (%) 100 01/01/20 05:05 Pertinent Admission Physical Exam Findings: withdrawal sign and symptom Vital Signs Temperature 97.3 F L 01/01/20 05:05 Pulse Rate 62 01/01/20 05:05 Respiratory Rate 20 01/01/20 05:05 Blood Pressure 124/78 01/01/20 05:05 O2 Sat by Pulse Oximetry (%) 100 01/01/20 05:05 Laboratory Last Values WBC 3.9 K/mm3 (4.0-10.0) L 12/30/19 08:30 RBC 3.62 M/mm3 (4.00-5.60) L 12/30/19 08:30 Hgb 12.5 GM/dL (11.7-16.9) 12/30/19 08:30 Hct 37.4 % (35.4-49) D 12/30/19 08:30 MCV 103.2 fl (80-96) H 12/30/19 08:30 MCH 34.6 pg (25.7-33.7) H D 12/30/19 08:30 MCHC 33.5 g/dl (32.0-35.9) 12/30/19 08:30 RDW 14.9 % (11.9-15.9) 12/30/19 08:30 Plt Count 222 K/MM3 (134-434) D 12/30/19 08:30 MPV 8.0 fl (7.5-11.1) D 12/30/19 08:30 Sodium 140 mmol/L (136-145) 12/30/19 08:30 Potassium 4.4 mmol/L (3.5-5.1) 12/30/19 08:30 Chloride 103 mmol/L (98-107) 12/30/19 08:30 Carbon Dioxide 29 mmol/L (21-32) 12/30/19 08:30 Anion Gap 9 MMOL/L (8-16) 12/30/19 08:30 BUN 14.0 mg/dL (7-18) 12/30/19 08:30 Creatinine 0.7 mg/dL (0.55-1.3) 12/30/19 08:30 Est GFR (CKD-EPI)AfAm 146.77 12/30/19 08:30 Est GFR (CKD-EPI)NonAf 126.64 12/30/19 08:30 Random Glucose 85 mg/dL (74-106) 12/30/19 08:30 Calcium 9.6 mg/dL (8.5-10.1) 12/30/19 08:30 Total Bilirubin 0.2 mg/dL (0.2-1) 12/30/19 08:30 AST 54 U/L (15-37) H 12/30/19 08:30 ALT 34 U/L (13-61) 12/30/19 08:30 Alkaline Phosphatase 82 U/L (45-117) 12/30/19 08:30 Total Protein 7.2 g/dl (6.4-8.2) 12/30/19 08:30 Albumin 3.5 g/dl (3.4-5.0) 12/30/19 08:30 Syphilis Serology Non-reactive (NONREACTIVE) 12/30/19 08:30 COVID-19 (RORY) Not detected (Not Detected) 12/29/19 14:57 HIV Ag/Ab Combo Qual Negative (NEGATIVE) 12/30/19 08:30 - Treatment Hospital Course: Detox Protocol Followed, Detoxed Safely, Responded well, Discharged Condition Good, Rehab Referral Accepted Patient has Accepted a Rehab Referral to: [facility] - Medication Discharge Medications: Ambulatory Orders levETIRAcetam [Keppra -] 1,000 mg PO BID 12/29/19 - Diagnosis (1) Alcohol dependence with uncomplicated withdrawal Current Visit: Yes Status: Acute (2) Cocaine use disorder Current Visit: No Status: Chronic (3) History of seizure Current Visit: No Status: Chronic (4) Dehydration Current Visit: Yes Status: Acute - AMA Did Patient Leave Against Medical Advice: No
[2020-01-01 11:07] VITALS: BP 131/80; PULSE 87; TEMP 97.8
[2020-01-02] MEDS ORDERED: chlordiazePOXIDE HCL 10 MG CAPSULE PO SCH (05:00)
[2020-01-03] MEDS ORDERED: chlordiazePOXIDE HCL 10 MG CAPSULE PO ONE (05:00)
== END 2020-01-01 11:35 | disposition other institution (70) | DRG 774 ==
LOC: YASAS 12:51 → Y6N 14:29
PROVIDERS: ADMIT Allergy & Immunology; ATTEND Allergy & Immunology
PROC: HZ2ZZZZ Detoxification Services for Substance Abuse Treatment (ICD-10-PCS; principal; 2019-12-29)
DX: F10.230 Alcohol dependence with withdrawal, uncomplicated (principal); F14.20 Cocaine dependence, uncomplicated; F12.20 Cannabis dependence, uncomplicated; F20.9 Schizophrenia, unspecified; F31.9 Bipolar disorder, unspecified; E86.0 Dehydration; G40.509 Epileptic seizures related to external causes, not intractable, without status epilepticus; I10 Essential (primary) hypertension; R01.1 Cardiac murmur, unspecified
CPT/HCPCS: 36415; 80053; 80177; 85027; 86780; 87389; U0003

== ENCOUNTER 2020-01-01 11:42 | Inpatient (IN) | payer OTHER ==
[2020-01-01] MEDS ORDERED: MAGNESIUM CITRATE 300 ML BOTTLE PO PRN (13:18)
[2020-01-01] MEDS ORDERED: guaiFENesin 200 MG/10 ML 10 ML UNIT-DOSE CUPS PO PRN (13:18)
[2020-01-01] MEDS ORDERED: P-EPHED 60MG/TRIPROLIDI 2.5MG TABLET PO PRN (13:18)
[2020-01-01] MEDS ORDERED: MENTHOL/PHENOL 1 EACH UD MM PRN (13:18)
[2020-01-01] MEDS ORDERED: LOPERAMIDE HCL 2 MG CAPSULE PO PRN (13:18)
[2020-01-01] MEDS ORDERED: IBUPROFEN 400 MG TABLET (FP) PO PRN (13:18)
[2020-01-01] MEDS ORDERED: NICOTINE POLACRILEX 2 MG GUM BUC PRN (13:18)
[2020-01-01] MEDS ORDERED: MAG HYDROX/AL HYDROX/SIMETH 30 ML UNIT-DOSE CUP PO PRN (13:18)
[2020-01-01] MEDS ORDERED: ACETAMINOPHEN 325 MG TABLET (FP) PO PRN (13:18)
[2020-01-01] MEDS ORDERED: MAGNESIUM HYDROX 2400MG/30ML ORAL SUSPENSION 30 ML CUP PO PRN (13:18)
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
[2020-01-01] MEDS: hydrOXYzine PAMOATE 25 MG CAPSULE (FP) PO PRN (21:32)
[2020-01-01] MEDS: MELATONIN 5 MG TABLETS PO SCH (21:32)
[2020-01-01] MEDS: THIAMINE HCL 100 MG TABLET (FP) PO SCH (21:33)
[2020-01-01] MEDS ORDERED: levETIRAcetam 500 MG TABLET (FP) PO SCH (22:00)
[2020-01-02] MEDS: PRENATAL VITAMINS W/ FOLIC ACID TABLET (FP) PO SCH (09:37)
[2020-01-02] MEDS: NICOTINE 7 MG/24 HOURS TOPICAL PATCH TD SCH (09:37)
[2020-01-02] MEDS: levETIRAcetam 500 MG TABLET (FP) PO SCH (09:37)
[2020-01-02] MEDS: MELATONIN 5 MG TABLETS PO SCH (21:31)
[2020-01-02] MEDS: THIAMINE HCL 100 MG TABLET (FP) PO SCH (21:31)
[2020-01-03 07:12] VITALS: TEMP 97.7
[2020-01-03] MEDS: PRENATAL VITAMINS W/ FOLIC ACID TABLET (FP) PO SCH (10:05)
[2020-01-03] MEDS: levETIRAcetam 500 MG TABLET (FP) PO SCH (10:05)
[2020-01-03] MEDS: NICOTINE 7 MG/24 HOURS TOPICAL PATCH TD SCH (10:05)
--- NOTE | 2020-01-03 16:04 | CONSULT ---
[facility] Psychiatric Consult - Data Date of interview: 01/03/20 Admission source: Transfer from [address] [place] [address]. Identifying data: Patient is approached at bedside for the psychiatric interview. He politely declines. " I am fine. I don't need to see psychiatrists. Nursing staff is made aware.
[2020-01-03] MEDS: THIAMINE HCL 100 MG TABLET (FP) PO SCH (21:36)
[2020-01-03] MEDS: hydrOXYzine PAMOATE 25 MG CAPSULE (FP) PO PRN (21:36)
[2020-01-03] MEDS: MELATONIN 5 MG TABLETS PO SCH (21:36)
[2020-01-04] MEDS: PRENATAL VITAMINS W/ FOLIC ACID TABLET (FP) PO SCH (09:53)
[2020-01-04] MEDS: levETIRAcetam 500 MG TABLET (FP) PO SCH (09:53)
[2020-01-04] MEDS: NICOTINE 7 MG/24 HOURS TOPICAL PATCH TD SCH (09:53)
[2020-01-04] MEDS: MELATONIN 5 MG TABLETS PO SCH (21:36)
[2020-01-04] MEDS: hydrOXYzine PAMOATE 25 MG CAPSULE (FP) PO PRN (21:36)
[2020-01-04] MEDS: THIAMINE HCL 100 MG TABLET (FP) PO SCH (21:36)
[2020-01-05 07:07] VITALS: BP 135/84; PULSE 18
[2020-01-05] MEDS: NICOTINE 7 MG/24 HOURS TOPICAL PATCH TD SCH (10:24)
[2020-01-05] MEDS: PRENATAL VITAMINS W/ FOLIC ACID TABLET (FP) PO SCH (10:24)
[2020-01-05] MEDS: levETIRAcetam 500 MG TABLET (FP) PO SCH (10:24)
--- NOTE | 2020-01-05 10:56 | DS ---
[facility] Rehab Discharge Summary - [facility] Rehab Discharge Summary Admission Date: 01/01/20 Discharge Date: 01/06/20 - History Present History: Alcohol dependence, Cannabis dependence Additional Comments: Pt decline dto continue with rehab for personal reason. Pt demanding to leave "right now" and threatening to "act crazy and you guys will now take me out now". Pt was seen by the counselor Ms Eladia Sanchez who gave him a CD referral to follow up. Pertinent Past History: Seizure disorder(on Keppra 1000 mg po daily) HTN(no med) Cardiac Murmur Hx Bipolar Disorder Hx Schizophrenia - Discharge Physical Exam Vital Signs: Vital Signs Temperature 97.7 F 01/05/20 06:26 Pulse Rate 18 L 01/05/20 06:26 Respiratory Rate 77 H 01/05/20 06:26 Blood Pressure 135/84 01/05/20 06:26 O2 Sat by Pulse Oximetry (%) 95 01/05/20 06:26 Alert o x 3, denies s/h/i nad oob ambulating with steady gait Active FROM all extremities. Pertinent Admission Physical Exam Findings: Unremarkable and stable on admission from detox. - Treatment Discharge Condition: Discharge condition good Hospital Course: Referred to [facility] for CD aftercare - Medication Discharge Medications: Ambulatory Orders levETIRAcetam [Keppra -] 1,000 mg PO BID 12/29/19 levETIRAcetam [Keppra -] 1,000 mg PO DAILY #0 tablet 01/01/20 - Medication-Assisted Treatment (MAT) Medication-Assisted Treatment (MAT): No - Discharge Instructions Diet, activity, other medical instructions: Diet:Regular Activity: oob ad ashok Other medical instructions:Follow up with primary care at [facility] - Diagnosis (1) Alcohol dependence Status: Chronic Qualifiers: Substance use status: uncomplicated Qualified Code(s): F10.20 - Alcohol dependence, uncomplicated (2) Cannabis dependence, uncomplicated Status: Chronic (3) Cocaine use disorder Status: Chronic (4) HTN (hypertension), benign Status: Chronic (5) Seizure disorder Status: Chronic - Follow-up Referral Minutes to complete discharge: 15 - AMA Did Patient Leave Against Medical Advice: Yes Additional Comments: Pt reports he has a PCP with [facility] and has own medication Keppra at home.
== END 2020-01-05 11:50 | disposition left against medical advice (07) | DRG 770 ==
LOC: YASAS 11:42 → Y5N 11:43
PROVIDERS: ADMIT Allergy & Immunology; ATTEND Allergy & Immunology
PROC: HZ42ZZZ Group Counseling for Substance Abuse Treatment, Cognitive-Behavioral (ICD-10-PCS; principal; 2020-01-01)
DX: F10.20 Alcohol dependence, uncomplicated (principal); F12.20 Cannabis dependence, uncomplicated; F14.10 Cocaine abuse, uncomplicated; F31.9 Bipolar disorder, unspecified; F20.9 Schizophrenia, unspecified; I10 Essential (primary) hypertension; G40.909 Epilepsy, unspecified, not intractable, without status epilepticus; R01.1 Cardiac murmur, unspecified